=== PATIENT | female | born 1940 | race Caucasian/White ===

== ENCOUNTER → 2016-10-20 | Outpatient (CLI) | payer MEDICARE, BC ==
--- NOTE | 2016-10-21 11:36 | MM ---
Reason for exam: screening (asymptomatic). Last mammogram was performed 1 year ago. History: Patient is postmenopausal. Physical Findings: A clinical breast exam by your physician is recommended on an annual basis and results should be correlated with mammographic findings. MG 3D Screening Mammo W/Cad Bilateral CC and MLO view(s) were taken. Prior study comparison: October 17, 2015, bilateral MG 3d diag mammo w/cad [facility]. May 17, 2015, mammogram, performed at [facility]. There are scattered fibroglandular densities. Benign calcifications. There is chronic nodularity bilaterally. There is no dominant lesion. No significant changes when compared with prior studies. ASSESSMENT: Benign, BI-RAD 2 RECOMMENDATION: Routine screening mammogram of both breasts in 1 year.
== END | disposition home or self-care (01) ==
LOC: RADMAMWWP 09:32
PROVIDERS: ATTEND Internal Medicine
DX: Z12.31 Encounter for screening mammogram for malignant neoplasm of breast (principal)
CPT/HCPCS: 77063; G0202

== ENCOUNTER → 2017-10-22 | Outpatient (CLI) | payer BC, MEDICARE ==
--- NOTE | 2017-10-22 13:33 | MM ---
Reason for exam: screening (asymptomatic). Last mammogram was performed 1 year ago. History: Patient is postmenopausal. Physical Findings: A clinical breast exam by your physician is recommended on an annual basis and results should be correlated with mammographic findings. MG 3D Screening Mammo W/Cad Bilateral CC and MLO view(s) were taken. Prior study comparison: October 20, 2016, bilateral MG 3d screening mammo w/cad. October 17, 2015, bilateral MG 3d diag mammo w/cad [facility]. There is a stable left central lower breast mass. Benign calcifications bilaterally. Left cardial device noted. No significant changes when compared with prior studies. ASSESSMENT: Benign, BI-RAD 2 RECOMMENDATION: Routine screening mammogram of both breasts in 1 year.
== END | disposition home or self-care (01) ==
LOC: RADMAMWWP 08:57
PROVIDERS: ATTEND Family Medicine
DX: Z12.31 Encounter for screening mammogram for malignant neoplasm of breast (principal)
CPT/HCPCS: 77063; 77067

== ENCOUNTER → 2017-12-15 | Outpatient (CLI) | payer MEDICARE ==
--- NOTE | 2017-12-15 09:34 | XR ---
EXAMINATION TYPE: XR ribs LT w pa chest xray DATE OF EXAM: 12/15/2017 COMPARISON: NONE HISTORY: Pain TECHNIQUE: Single view of the chest 4 views of the ribs are submitted. FINDINGS: The lungs are clear. No Evidence for pneumothorax. Hyperinflation compatible COPD. No evid ence for focal contusion. Mediastinal structures are midline. Evaluation of the ribs fails to demon strate evidence for displaced rib fracture or secondary sign of rib fracture. IMPRESSION: 1. COPD. 2. No evidence for a displaced left-sided rib fracture or pneumothorax.
--- NOTE | 2017-12-15 09:35 | XR ---
EXAMINATION TYPE: XR humerus LT DATE OF EXAM: 12/15/2017 CLINICAL HISTORY: pain TECHNIQUE: Frontal and lateral images of the left humerus are obtained. COMPARISON: None. FINDINGS: There is no acute fracture/dislocation evident. The joint spaces appear within normal limi ts. The overlying soft tissue appears unremarkable. IMPRESSION: There is no acute fracture or dislocation. ICD 10 NO FRACTURE, INITIAL EVALUATION
== END | disposition home or self-care (01) ==
LOC: RADXRMAIN 08:59
PROVIDERS: ATTEND Family Medicine
DX: J44.9 Chronic obstructive pulmonary disease, unspecified (principal); M79.602 Pain in left arm

== ENCOUNTER → 2018-04-01 | Outpatient (CLI) | payer MEDICARE ==
[2018-04-01 15:45] LABS: LDL Cholesterol,Calculated 125.6 mg/dL (0.0-131.0); VLDL Calculation 14.4 mg/dL (5.00-40.00)
[2018-04-01 15:53] LABS: T4, Free (Free Thyroxine) 1.3 ng/dL (0.80-1.80)
== END | disposition home or self-care (01) ==
LOC: LABWHC1 06:49
PROVIDERS: ATTEND Internal Medicine Cardiovascular Disease
DX: E78.2 Mixed hyperlipidemia (principal); I42.8 Other cardiomyopathies; I48.0 Paroxysmal atrial fibrillation; I50.22 Chronic systolic (congestive) heart failure; I13.0 Hypertensive heart and chronic kidney disease with heart failure and stage 1 through stage 4 chronic kidney disease, or unspecified chronic kidney disease; N18.9 Chronic kidney disease, unspecified
CPT/HCPCS: 36415; 80061; 82550; 84439; 84443; 84450; 84460

== ENCOUNTER → 2018-07-06 | Outpatient (CLI) | payer MEDICARE ==
--- NOTE | 2018-07-06 15:09 | CT ---
EXAMINATION TYPE: CT brain w con DATE OF EXAM: 07/06/2018 COMPARISON: HISTORY: memory issues CT DLP: 1083.4 mGycm Automated exposure control for dose reduction was used. CONTRAST: CT scan of the head is performed with IV Contrast, patient injected with 50 mL of Isovue 300. FINDINGS: There is no abnormal enhancing mass or midline shift identified. The ventricles and sulci are mildly prominent. Periventricular white matter ischemic demyelination noted. The globes are intact and the visualized sinuses are clear. IMPRESSION: No enhancing lesion identified.
== END | disposition home or self-care (01) ==
LOC: RADCTMAIN 12:59
PROVIDERS: ATTEND Family Medicine
DX: F03.90 Unspecified dementia, unspecified severity, without behavioral disturbance, psychotic disturbance, mood disturbance, and anxiety (principal); I48.2 Chronic atrial fibrillation; Z95.810 Presence of automatic (implantable) cardiac defibrillator
CPT/HCPCS: 82565; 84520; 70460; 36415; Q9967

== ENCOUNTER 2018-09-06 16:42 | Inpatient (IN) | payer MEDICARE ==
[2018-09-06] MEDS ORDERED: SODIUM CHLORIDE 0.9% 500 ML 500 ML IV STA (16:59)
--- NOTE | 2018-09-06 17:07 | ED ---
General Adult HPI - General Chief complaint: Shortness of Breath Stated complaint: BRIGITTE, Weakness Time Seen by Provider: 09/06/18 16:50 Source: patient, EMS, RN notes reviewed Mode of arrival: EMS - History of Present Illness Initial comments: This is a 77-year-old female who presents to the emergency department complaining of being weak times one year. According to the patient she's been weak and somewhat short of breath for almost a year and today her got sick of her being so tired and decided to send her to the emergency department. Patient denies any chest pain or palpitations. Patient states she is short of breath but it has been that way for almost a year. Patient denies any nausea vomiting diarrhea. Patient denies any abdominal pain. Patient denies any lightheadedness dizziness or near syncopal episode. Patient denies any dysuria hematuria urinary frequency. Patient denies any recent injury or fall per patient denies any leg swelling or calf tenderness. - Related Data Home Medications Medication Instructions Recorded Confirmed Acetaminophen Tab [Tylenol] 1,000 mg PO BID PRN 10/07/13 09/06/18 Amiodarone [Cordarone] 200 mg PO DAILY 09/06/18 09/06/18 Carvedilol [Coreg] 3.125 mg PO BID 09/06/18 09/06/18 Losartan [Cozaar] 25 mg PO DAILY 09/06/18 09/06/18 Memantine [Namenda] 10 mg PO BID 09/06/18 09/06/18 Pravastatin Sodium [Pravachol] 20 mg PO HS 09/06/18 09/06/18 Prune-Lax 2 tab PO DAILY 09/06/18 09/06/18 Warfarin Sodium 1 mg PO TUTH 09/06/18 09/06/18 Warfarin [Coumadin] 0.5 mg PO SUMOWEFRSA 09/06/18 09/06/18 Allergies Allergy/AdvReac Type Severity Reaction Status Date / Time amiodarone AdvReac Confusion Verified 09/06/18 17:53 Review of Systems ROS Statement: Those systems with pertinent positive or pertinent negative responses have been documented in the HPI. ROS Other: All systems not noted in ROS Statement are negative. Past Medical History Past Medical History: COPD, Hypertension History of Any Multi-Drug Resistant Organisms: None Reported Past Surgical History: Pacemaker Past Psychological History: No Psychological Hx Reported Smoking Status: Former smoker Past Alcohol Use History: None Reported Past Drug Use History: None Reported General Exam - General Exam Comments Initial Comments: GENERAL: Patient is well-developed and well-nourished. Patient is nontoxic and well- hydrated and is in mild distress. ENT: Neck is soft and supple. No significant lymphadenopathy is noted. Oropharynx is clear. Moist mucous membranes. Neck has full range of motion without eliciting any pain. EYES: The sclera were anicteric and conjunctiva were pink and moist. Extraocular movements were intact and pupils were equal round and reactive to light. Eyelids were unremarkable. PULMONARY: Unlabored respirations. Good breath sounds bilaterally. No audible rales rhonchi or wheezing was noted. CARDIOVASCULAR: There is a regular rate and rhythm without any murmurs gallops or rubs. ABDOMEN: Soft and nontender with normal bowel sounds. SKIN: Skin is clear with no lesions or rashes and otherwise unremarkable. NEUROLOGIC: Patient is alert and oriented x3. Cranial nerves II through XII are grossly i ntact. Motor and sensory are also intact. Normal speech, volume and content. Symmetrical smile. MUSCULOSKELETAL: Normal extremities with adequate strength and full range of motion. No lower extremity swelling or edema. No calf tenderness. LYMPHATICS: No significant lymphadenopathy is noted PSYCHIATRIC: Normal psychiatric evaluation. Course Vital Signs 09/06/18 09/06/18 16:50 20:01 Temperature 98.0 F 98 F Pulse Rate 72 60 Respiratory 16 16 Rate Blood Pressure 194/91 189/90 O2 Sat by Pulse 85 L 94 L Oximetry Medical Decision Making - Medical Decision Making EKG shows a paced rhythm at 70 bpm DE interval was 144 QRS is 126 QT interval 474 QTC is 511. Patient's EKG shows no ST segment elevation or depression or T wave abnormalities are noted. showed up after I initially interviewed the patient he stated that the patient was considerably weak over the last 2 days and has fallen 3 times without injury. Patient did not hit her head or complaining of any neck pain. just was upset because she was having a harder and harder time ambulating. He did not notice any slurred speech or any drooping face or any focal weakness. After the patient had been here an hour and a half the recalled that the patient may have been dragging her left leg on Thursday evening though the symptoms have completely resolved at this point After the patient was here over 3 hours family indicated to me that also have noted that she was altered mentally. I spoke with Dr. Falk he accepted the patient admitted the patient wrote admitting orders. I consult cardiology. I also gave the patient's a little Lasix and Nitropaste because of the mild congestive heart racing on the x-ray. - Lab Data Result diagrams: 09/06/18 15:48 09/06/18 15:48 Lab Results 09/06/18 09/06/18 09/06/18 Range/Units 15:48 15:48 15:48 WBC 11.1 H (3.8-10.6) k/uL RBC 3.58 L (3.80-5.40) m/uL Hgb 10.6 L (11.4-16.0) gm/dL Hct 32.9 L (34.0-46.0) % MCV 92.0 (80.0-100.0) fL MCH 29.5 (25.0-35.0) pg MCHC 32.0 (31.0-37.0) g/dL RDW 14.2 (11.5-15.5) % Plt Count 163 (150-450) k/uL Neutrophils % 76 % Lymphocytes % 12 % Monocytes % 8 % Eosinophils % 1 % Basophils % 0 % Neutrophils # 8.5 H (1.3-7.7) k/uL Lymphocytes # 1.3 (1.0-4.8) k/uL Monocytes # 0.9 (0-1.0) k/uL Eosinophils # 0.1 (0-0.7) k/uL Basophils # 0.0 (0-0.2) k/uL PT 16.3 H (9.0-12.0) sec INR 1.6 H (<1.2) APTT 26.7 (22.0-30.0) sec Sodium 140 (137-145) mmol/L Potassium 4.0 (3.5-5.1) mmol/L Chloride 106 (98-107) mmol/L Carbon Dioxide 26 (22-30) mmol/L Anion Gap 8 mmol/L BUN 40 H (7-17) mg/dL Creatinine 1.21 H (0.52-1.04) mg/dL Est GFR (CKD-EPI)AfAm 51 (>60 ml/min/1.73 sqM) Est GFR (CKD-EPI)NonAf 44 (>60 ml/min/1.73 sqM) Glucose 96 (74-99) mg/dL Plasma Lactic Acid Tutu (0.7-2.0) mmol/L Calcium 8.3 L (8.4-10.2) mg/dL Magnesium 2.1 (1.6-2.3) mg/dL Total Bilirubin 1.2 (0.2-1.3) mg/dL AST 68 H (14-36) U/L ALT 68 H (9-52) U/L Alkaline Phosphatase 51 (38-126) U/L Troponin I (0.000-0.034) ng/mL NT-Pro-B Natriuret Pep pg/mL Total Protein 5.9 L (6.3-8.2) g/dL Albumin 3.1 L (3.5-5.0) g/dL Urine Color Urine Appearance (Clear) Urine pH (5.0-8.0) Ur Specific Ivins (1.001-1.035) Urine Protein (Negative) Urine Glucose (UA) (Negative) Urine Ketones (Negative) Urine Blood (Negative) Urine Nitrite (Negative) Urine Bilirubin (Negative) Urine Urobilinogen (<2.0) mg/dL Ur Leukocyte Esterase (Negative) Urine RBC (0-5) /hpf Urine WBC (0-5) /hpf Urine Bacteria (None) /hpf Hyaline Casts (0-2) /lpf Urine Mucus (None) /hpf 09/06/18 09/06/18 09/06/18 Range/Units 15:48 15:48 16:15 WBC (3.8-10.6) k/uL RBC (3.80-5.40) m/uL Hgb (11.4-16.0) gm/dL Hct (34.0-46.0) % MCV (80.0-100.0) fL MCH (25.0-35.0) pg MCHC (31.0-37.0) g/dL RDW (11.5-15.5) % Plt Count (150-450) k/uL Neutrophils % % Lymphocytes % % Monocytes % % Eosinophils % % Basophils % % Neutrophils # (1.3-7.7) k/uL Lymphocytes # (1.0-4.8) k/uL Monocytes # (0-1.0) k/uL Eosinophils # (0-0.7) k/uL Basophils # (0-0.2) k/uL PT (9.0-12.0) sec INR (<1.2) APTT (22.0-30.0) sec Sodium (137-145) mmol/L Potassium (3.5-5.1) mmol/L Chloride (98-107) mmol/L Carbon Dioxide (22-30) mmol/L Anion Gap mmol/L BUN (7-17) mg/dL Creatinine (0.52-1.04) mg/dL Est GFR (CKD-EPI)AfAm (>60 ml/min/1.73 sqM) Est GFR (CKD-EPI)NonAf (>60 ml/min/1.73 sqM) Glucose (74-99) mg/dL Plasma Lactic Acid Tutu (0.7-2.0) mmol/L Calcium (8.4-10.2) mg/dL Magnesium (1.6-2.3) mg/dL Total Bilirubin (0.2-1.3) mg/dL AST (14-36) U/L ALT (9-52) U/L Alkaline Phosphatase (38-126) U/L Troponin I 0.053 H* (0.000-0.034) ng/mL NT-Pro-B Natriuret Pep 7740 pg/mL Total Protein (6.3-8.2) g/dL Albumin (3.5-5.0) g/dL Urine Color Yellow Urine Appearance Clear (Clear) Urine pH 6.0 (5.0-8.0) Ur Specific Ivins 1.012 (1.001-1.035) Urine Protein 1+ H (Negative) Urine Glucose (UA) Negative (Negative) Urine Ketones Negative (Negative) Urine Blood Small H (Negative) Urine Nitrite Negative (Negative) Urine Bilirubin Negative (Negative) Urine Urobilinogen <2.0 (<2.0) mg/dL Ur Leukocyte Esterase Negative (Negative) Urine RBC <1 (0-5) /hpf Urine WBC 3 (0-5) /hpf Urine Bacteria Rare H (None) /hpf Hyaline Casts 1 (0-2) /lpf Urine Mucus Rare H (None) /hpf 09/06/18 Range/Units 16:48 WBC (3.8-10.6) k/uL RBC (3.80-5.40) m/uL Hgb (11.4-16.0) gm/dL Hct (34.0-46.0) % MCV (80.0-100.0) fL MCH (25.0-35.0) pg MCHC (31.0-37.0) g/dL RDW (11.5-15.5) % Plt Count (150-450) k/uL Neutrophils % % Lymphocytes % % Monocytes % % Eosinophils % % Basophils % % Neutrophils # (1.3-7.7) k/uL Lymphocytes # (1.0-4.8) k/uL Monocytes # (0-1.0) k/uL Eosinophils # (0-0.7) k/uL Basophils # (0-0.2) k/uL PT (9.0-12.0) sec INR (<1.2) APTT (22.0-30.0) sec Sodium (137-145) mmol/L Potassium (3.5-5.1) mmol/L Chloride (98-107) mmol/L Carbon Dioxide (22-30) mmol/L Anion Gap mmol/L BUN (7-17) mg/dL Creatinine (0.52-1.04) mg/dL Est GFR (CKD-EPI)AfAm (>60 ml/min/1.73 sqM) Est GFR (CKD-EPI)NonAf (>60 ml/min/1.73 sqM) Glucose (74-99) mg/dL Plasma Lactic Acid Tutu 1.1 (0.7-2.0) mmol/L Calcium (8.4-10.2) mg/dL Magnesium (1.6-2.3) mg/dL Total Bilirubin (0.2-1.3) mg/dL AST (14-36) U/L ALT (9-52) U/L Alkaline Phosphatase (38-126) U/L Troponin I (0.000-0.034) ng/mL NT-Pro-B Natriuret Pep pg/mL Total Protein (6.3-8.2) g/dL Albumin (3.5-5.0) g/dL Urine Color Urine Appearance (Clear) Urine pH (5.0-8.0) Ur Specific Ivins (1.001-1.035) Urine Protein (Negative) Urine Glucose (UA) (Negative) Urine Ketones (Negative) Urine Blood (Negative) Urine Nitrite (Negative) Urine Bilirubin (Negative) Urine Urobilinogen (<2.0) mg/dL Ur Leukocyte Esterase (Negative) Urine RBC (0-5) /hpf Urine WBC (0-5) /hpf Urine Bacteria (None) /hpf Hyaline Casts (0-2) /lpf Urine Mucus (None) /hpf Critical Care Time Critical Care Time: Yes Total Critical Care Time: 35 Disposition Clinical Impression: Congestive heart failure, Generalized weakness, Altered mental status Disposition: ADMITTED IP TO THIS HOSP Referrals: Fred Gant DO [Primary Care Provider] - 1-2 days Time of Disposition: 20:35
[2018-09-06 17:14] LABS: Basophils % (A) 0 %; Eosinophils # (A) 0.1 k/uL (0-0.7); Eosinophils % (A) 1 %; HCT 32.9 % (34.0-46.0); HGB 10.6 gm/dL (11.4-16.0); Lymphocytes # (A) 1.3 k/uL (1.0-4.8); Lymphocytes % (A) 12 %; MCH 29.5 pg (25.0-35.0); Mean Platelet Volume 7.8; Monocytes # (A) 0.9 k/uL (0-1.0); Monocytes % (A) 8 %; Neutrophils # (A) 8.5 k/uL (1.3-7.7); Neutrophils % (A) 76 %; Platelet Count 163 k/uL (150-450); RBC 3.58 m/uL (3.80-5.40); RDW 14.2 % (11.5-15.5); WBC 11.1 k/uL (3.8-10.6)
[2018-09-06 17:20] LABS: Albumin 3.1 g/dL (3.5-5.0); Calcium 8.3 mg/dL (8.4-10.2); Magnesium 2.1 mg/dL (1.6-2.3); Total Bilirubin 1.2 mg/dL (0.2-1.3); Total Protein 5.9 g/dL (6.3-8.2)
--- NOTE | 2018-09-06 17:52 | XR ---
EXAMINATION TYPE: XR chest 2V DATE OF EXAM: 09/06/2018 COMPARISON: Chest x-ray December 15, 2017 HISTORY: Weakness. TECHNIQUE: Frontal and lateral views of the chest are obtained. FINDINGS: There is chronic parenchymal change with small left greater than right bilateral pleural e ffusions. No suspicious focal airspace opacity or pneumothorax is seen. The cardiac silhouette size i s more prominent and enlarged on current study with atherosclerotic thoracic aorta. There is dual mechelle d pacemaker/ICD with left-sided pacemaker lead redemonstrated.. The osseous structures are deminera lized. Underlying S-shaped scoliosis is present. IMPRESSION: Correlate for CHF exacerbation as there is new cardiomegaly with small left greater than right pleural effusions on background chronic parenchymal change.
[2018-09-06 18:12] LABS: INR 1.6 (<1.2); Partial Thromboplastin Time 26.7 sec (22.0-30.0); Prothrombin Time 16.3 sec (9.0-12.0)
[2018-09-06 18:25] LABS: Appearance,Urine Clear (Clear); Bacteria,Urine Rare /hpf; Bilirubin,Urine Negative (Negative); Blood,Urine Small (Negative); Color,Urine Yellow; Glucose,Urine (UA) Negative (Negative); Hyaline Casts,Urine 1 /lpf (0-2); Ketones,Urine Negative (Negative); Leukocyte Esterase,Urine Negative (Negative); Mucus,Urine Rare /hpf; Nitrite,Urine Negative (Negative); Protein,Urine 1+ (Negative); RBC,Urine <1 /hpf (0-5); Specific Gravity,Urine 1.012 (1.001-1.035); Urobilinogen,Urine <2.0 mg/dL (<2.0)
--- NOTE | 2018-09-06 19:03 | CT ---
EXAMINATION TYPE: CT brain wo con DATE OF EXAM: 09/06/2018 HISTORY: Altered mental status. CT DLP: 1109.4 mGycm. Automated Exposure Control for Dose Reduction was Utilized. TECHNIQUE: CT scan of the head is performed without contrast. COMPARISON: CT brain July 06, 2018. FINDINGS: There is no acute intracranial hemorrhage or midline shift identified. There is diffuse v entricular and sulcal prominence consistent with diffuse age-related cerebral atrophy. There is low- attenuation in the periventricular white matter consistent with chronic small vessel ischemic change. The globes are intact and the visualized sinuses are clear. IMPRESSION: No acute intracranial hemorrhage or midline shift. There is moderate diffuse age-relate d cerebral atrophy and chronic small vessel ischemic change redemonstrated. No significant change fr om recent CT.
[2018-09-06] MEDS ORDERED: FUROSEMIDE 10 MG/ML 2 ML VIAL IV ONE (20:30)
[2018-09-06] MEDS ORDERED: NITROGLYCERIN OINT 1 INCH/GM PACKET TOPICAL STA (20:31)
[2018-09-06] MEDS ORDERED: FUROSEMIDE 10 MG/ML 2 ML VIAL IV SCH (21:00)
[2018-09-06] MEDS: FUROSEMIDE 10 MG/ML 2 ML VIAL IV SCH (22:10)
[2018-09-07] MEDS: NITROGLYCERIN OINT 1 INCH/GM PACKET TOPICAL SCH ×5 (00:49→23:33)
[2018-09-07] MEDS: FUROSEMIDE 10 MG/ML 2 ML VIAL IV SCH ×2 (09:24→21:25)
[2018-09-07] MEDS ORDERED: ACETAMINOPHEN TAB 500 MG TAB PO PRN (09:59)
[2018-09-07] MEDS ORDERED: LOSARTAN 25 MG TAB PO SCH (10:00)
--- NOTE | 2018-09-07 10:09 | P.CRDCN ---
History of Present Illness History of present illness: This is Dr. Leal dictating a consult on this patient The patient was interviewed and examined by me IMPRESSION / ASSESSMENT: Elderly female, presenting with weakness chest wall discomfort borderline troponins shortness of breath Blood pressure elevated Likely history of cardio myopathy status post Bi V pacing PLAN: 2-D echo and Doppler study to assess cardiac structure and function given his symptoms of shortness of breath Consider CT of the chest to look for parenchymal changes consistent with amiodarone toxicity/consider pulmonary evaluation Repeat troponins Manual blood pressure checks with a small cuff HPI According to ER notes patient presents with weakness Increasing weakness over the last 2 days She has fallen 3 times According to family altered mental status was noted She was treated with IV Lasix 20 mg every 12 and injured Nitropaste According to her she is quite short of breath. The patient was complaining of chest discomfort or chest wall is also tender but troponins are borderline abnormal [facility] is on oral amiodarone ROS: No fever chills or rigors, no cough, phlegm or expectoration, no nausea, vomiting or diarrhea, no hematuria, dysuria, no musculoskeletal complaints, no strokes or seizures, no skin lesions. EXAMINATION: Reduced breath sounds bilaterally with crackles at the bases Heart sounds S1 and S2 are soft no murmurs Abdomen is soft Extended is warm no edema No JVD REVIEW OF LABS, ECG & MEDICAL DATA Chest x-ray shows a dual-chamber device Possible small bilateral pleural effusions Twelve-lead ECG shows AV sequential pacing with biventricular pacing with a narrow QRS Computed tomography scan showed cerebral atrophy and chronic small vessel ischemic changes First troponin of 0.053 BUN 40 creatinine 1.2 AST and ALT is 68 each NT PROBnP greater than 7000 White count 11,000 Medication list includes warfarin for paroxysmal atrial fibrillation, Pravachol, Cozaar a regular and 200 mg of amiodarone Past Medical History Past Medical History: COPD, Hypertension History of Any Multi-Drug Resistant Organisms: None Reported Past Surgical History: Pacemaker Additional Past Surgical History / Comment(s): pacer 06/16/2018 Type of Cardiac Device: Biventricular Pacemaker Device Placement Date:: 06/16/2018 Past Psychological History: No Psychological Hx Reported Smoking Status: Former smoker Past Alcohol Use History: None Reported Past Drug Use History: None Reported Medications and Allergies Home Medications Medication Instructions Recorded Confirmed Type Acetaminophen Tab [Tylenol] 1,000 mg PO BID PRN 10/07/13 09/06/18 History Amiodarone [Cordarone] 200 mg PO DAILY 09/06/18 09/06/18 History Carvedilol [Coreg] 3.125 mg PO BID 09/06/18 09/06/18 History Losartan [Cozaar] 25 mg PO DAILY 09/06/18 09/06/18 History Memantine [Namenda] 10 mg PO BID 09/06/18 09/06/18 History Pravastatin Sodium [Pravachol] 20 mg PO HS 09/06/18 09/06/18 History Prune-Lax 2 tab PO DAILY 09/06/18 09/06/18 History Warfarin Sodium 1 mg PO TUTH 09/06/18 09/06/18 History Warfarin [Coumadin] 0.5 mg PO SUMOWEFRSA 09/06/18 09/06/18 History Allergies Allergy/AdvReac Type Severity Reaction Status Date / Time amiodarone AdvReac Confusion Verified 09/06/18 17:53 Physical Exam Vitals: Vital Signs Temp Pulse Pulse Resp BP BP Pulse Ox 09/07/18 04:00 98.5 F 60 20 171/80 98 09/07/18 00:00 98.1 F 60 19 175/88 97 09/06/18 21:05 97.8 F 60 16 187/86 94 L 09/06/18 20:48 98.4 F 80 20 181/84 96 09/06/18 20:01 98 F 60 16 189/90 94 L 09/06/18 16:50 98.0 F 72 16 194/91 85 L Intake and Output 09/06/18 09/07/18 09/07/18 22:59 06:59 14:59 Other: # Voids 4 Weight 44.452 kg 41.7 kg Results 09/06/18 15:48 09/06/18 15:48 Cardiac Enzymes 09/06/18 09/06/18 Range/Units 15:48 15:48 AST 68 H (14-36) U/L Troponin I 0.053 H* (0.000-0.034) ng/mL Coagulation 09/06/18 Range/Units 15:48 PT 16.3 H (9.0-12.0) sec APTT 26.7 (22.0-30.0) sec CBC 09/06/18 Range/Units 15:48 WBC 11.1 H (3.8-10.6) k/uL RBC 3.58 L (3.80-5.40) m/uL Hgb 10.6 L (11.4-16.0) gm/dL Hct 32.9 L (34.0-46.0) % Plt Count 163 (150-450) k/uL Comprehensive Metabolic Panel 09/06/18 Range/Units 15:48 Sodium 140 (137-145) mmol/L Potassium 4.0 (3.5-5.1) mmol/L Chloride 106 (98-107) mmol/L Carbon Dioxide 26 (22-30) mmol/L BUN 40 H (7-17) mg/dL Creatinine 1.21 H (0.52-1.04) mg/dL Glucose 96 (74-99) mg/dL Calcium 8.3 L (8.4-10.2) mg/dL AST 68 H (14-36) U/L ALT 68 H (9-52) U/L Alkaline Phosphatase 51 (38-126) U/L Total Protein 5.9 L (6.3-8.2) g/dL Albumin 3.1 L (3.5-5.0) g/dL Current Medications Generic Name Dose Route Start Last Admin Trade Name Freq PRN Reason Stop Dose Admin Furosemide 20 mg 09/06/18 21:00 09/06/18 22:10 Lasix IV 20 mg Q12HR MISA Administration Nitroglycerin 1 inch 09/07/18 00:00 09/07/18 05:49 Nitro-Bid Oint TOPICAL 1 inch Q6HR MISA Administration Intake and Output 09/06/18 09/07/18 09/07/18 22:59 06:59 14:59 Other: # Voids 4 Weight 44.452 kg 41.7 kg 09/06/18 15:48 09/06/18 15:48
[2018-09-07] MEDS: AMIODARONE 200 MG TAB PO SCH (10:30)
[2018-09-07 11:54] LABS: INR 2.1 (<1.2); Prothrombin Time 20.4 sec (9.0-12.0)
--- NOTE | 2018-09-07 13:18 | ECHOF ---
Referral Reason:sob,cardiomyopathy MEASUREMENTS -------- HEIGHT: 165.1 cm WEIGHT: 41.3 kg BP: 171/80 RVIDd: 3.1 cm (< 3.3) IVSd: 1.1 cm (0.6 - 1.1) LVIDd: 4.2 cm (3.9 - 5.3) LVPWd: 1.1 cm (0.6 - 1.1) IVSs: 1.6 cm LVIDs: 2.6 cm LVPWs: 1.4 cm LAESV Index (A-L): 43.86 ml/m Ao Diam: 3.3 cm (2.0 - 3.7) AV Cusp: 1.6 cm (1.5 - 2.6) LA Diam: 2.2 cm (2.7 - 3.8) MV E Andrew: 1.41 m/s MV DecT: 196 ms MV A Andrew: 0.70 m/s MV E/A Ratio: 2.01 AV maxP.06 mmHg AV meanP.43 mmHg AR PHT: 638 ms RAP: 5.00 mmHg RVSP: 48.53 mmHg FINDINGS -------- Paced rhythm. This was a technically adequate study. The left ventricular size is normal. There is mild concentric left ventricular hypertrophy. Overa ll left ventricular systolic function is low-normal with, an EF between 50 - 55 %. The right ventricle is normal in size and function. LA is severely dilated >40 ml/m2 Electronic pacemaker lead seen in the right ventricular cavity. RA appears enlarged. Aortic valve is trileaflet and is mildly thickened. There is mild aortic regurgitation. There is no evidence of aortic stenosis. The mitral valve leaflets are mildly thickened. Mild mitral annular calcification present. Mild m itral regurgitation is present. [id number] tricuspid regurgitation present. There is mild pulmonary hypertension. The right ventricular systolic pressure, as measured by Doppler, is 48.53mmHg. Trace/mild (physiologic) pulmonic regurgitation. The aortic root size is normal. Normal inferior vena cava with normal inspiratory collapse consistent with estimated right atrial pre ssure of 5 mmHg. There is no pericardial effusion. CONCLUSIONS -------- 1. Paced rhythm. 2. This was a technically adequate study. 3. The left ventricular size is normal. 4. There is mild concentric left ventricular hypertrophy. 5. Overall left ventricular systolic function is low-normal with, an EF between 50 - 55 %. 6. LA is severely dilated >40 ml/m2 7. Electronic pacemaker lead seen in the right ventricular cavity. 8. RA appears enlarged. 9. Aortic valve is trileaflet and is mildly thickened. 10. There is mild aortic regurgitation. 11. There is no evidence of aortic stenosis. 12. The mitral valve leaflets are mildly thickened. 13. Mild mitral annular calcification present. 14. Mild mitral regurgitation is present. 15. [id number]-[id number] tricuspid regurgitation present. 16. There is mild pulmonary hypertension. 17. The right ventricular systolic pressure, as measured by Doppler, is 48.53mmHg. 18. Trace/mild (physiologic) pulmonic regurgitation. 19. The aortic root size is normal. 20. There is no pericardial effusion. HOSPICE BEREAVEMENT COORDINATOR: Guille Garcia RDCS
[2018-09-07 13:46] VITALS: BMI 15.3
[2018-09-07] MEDS ORDERED: HYDROcodone/APAP 5-325MG 1 EACH TAB PO STA (15:52)
[2018-09-07] MEDS: CARVEDILOL 3.125 MG TAB PO SCH (17:00)
[2018-09-07] MEDS ORDERED: WARFARIN 1 MG TAB PO SCH (18:00)
[2018-09-07] MEDS: MEMANTINE 10 MG TAB PO SCH (21:25)
[2018-09-07] MEDS: PRAVASTATIN SODIUM 20 MG TAB PO SCH (21:25)
--- NOTE | 2018-09-07 23:34 | P.HPIM ---
History of Present Illness H&P Date: 09/07/18 Chief Complaint: Chest pain or shortness of breath Patient is a 77-year-old female with a known history of COPD, hypertension, cardiomyopathy with biventricular pacer, long-term anticoagulation with Coumadin was brought to the hospital by her family due to complaints of chest pain or shortness of breath. Aberrantly patient has been very weak and is unable to walk last few days. Patient was also having shortness of breath. She was brought to the hospital by her . Patient was leaning forward in the couch. Otherwise denied any complaints of fever or chills. No cough or sputum production. No recent illnesses. Denied any nausea vomiting or abdominal pain or diarrhea. Denied any dysuria or increased urinary frequency. Patient denied any recent fall. No leg swelling. Patient also has been confused recently as per family. EKG showed AV pacer rhythm Chest x-ray showed correlate for CHF exacerbation as there is new cardiomegaly with small left greater than right pleural effusions on background chronic parenchymal change. Troponin 0.053 and 0[address] head showed no acute intracranial process. Review of Systems Constitutional: Patient denies any fever or chills . No generalized weakness or weight loss. Abdomen: Patient denied nausea vomiting and diarrhea and abdominal pain. Cardiovascular: Patient does have chest pressure and shortness of breath. No leg swelling no palpitations. Respiratory: patient denied any cough is from production. No shortness of breath Neurologic: Patient denied any numbness or tingling headache. Musculoskeletal: Patient denies any complaints of joint swelling or deformity. Complete review of systems could not be obtained from the patient Past Medical History Past Medical History: COPD, Hypertension History of Any Multi-Drug Resistant Organisms: None Reported Past Surgical History: Pacemaker Additional Past Surgical History / Comment(s): pacer 06/16/2018 Type of Cardiac Device: Biventricular Pacemaker Device Placement Date:: 06/16/2018 Past Psychological History: No Psychological Hx Reported Smoking Status: Former smoker Past Alcohol Use History: None Reported Past Drug Use History: None Reported Medications and Allergies Home Medications Medication Instructions Recorded Confirmed Type Acetaminophen Tab [Tylenol] 1,000 mg PO BID PRN 10/07/13 09/06/18 History Amiodarone [Cordarone] 200 mg PO DAILY 09/06/18 09/06/18 History Carvedilol [Coreg] 3.125 mg PO BID 09/06/18 09/06/18 History Losartan [Cozaar] 25 mg PO DAILY 09/06/18 09/06/18 History Memantine [Namenda] 10 mg PO BID 09/06/18 09/06/18 History Pravastatin Sodium [Pravachol] 20 mg PO HS 09/06/18 09/06/18 History Prune-Lax 2 tab PO DAILY 09/06/18 09/06/18 History Warfarin Sodium 1 mg PO TUTH 09/06/18 09/06/18 History Warfarin [Coumadin] 0.5 mg PO SUMOWEFRSA 09/06/18 09/06/18 History Allergies Allergy/AdvReac Type Severity Reaction Status Date / Time amiodarone AdvReac Confusion Verified 09/06/18 17:53 Physical Exam Vitals: Vital Signs Temp Pulse Pulse Resp BP BP Pulse Ox 09/07/18 11:40 97.9 F 61 18 147/66 100 09/07/18 08:00 97.3 F L 63 20 186/79 98 09/07/18 04:00 98.5 F 60 20 171/80 98 09/07/18 00:00 98.1 F 60 19 175/88 97 09/06/18 21:05 97.8 F 60 16 187/86 94 L 09/06/18 20:48 98.4 F 80 20 181/84 96 09/06/18 20:01 98 F 60 16 189/90 94 L 09/06/18 16:50 98.0 F 72 16 194/91 85 L Intake and Output 09/06/18 09/07/18 09/07/18 22:59 06:59 14:59 Intake Total 120 Output Total 700 Balance -580 Intake: Oral 120 Output: Urine 700 Other: # Voids 4 Weight 44.452 kg 41.7 kg 41.7 kg PHYSICAL EXAMINATION: Patient is lying in the bed comfortably, no acute distress, awake alert and oriented.. HEENT: Normocephalic. Neck is supple. Pupils reactive. Nostrils clear. Oral cavity is moist. Ears reveal no drainage. Neck reveals no JVD, carotid bruits, or thyromegaly. Kyphosis. CHEST EXAMINATION: Trachea is central. Symmetrical expansion. Bibasilar diminished air entry. No wheezing. Lung cool clear to auscultation and percussion. CARDIAC: Normal S1, S2 with no gallops. No murmurs ABDOMEN: Soft. Bowel sounds normal. No organomegaly. No abdominal bruits. Extremities: reveal no edema. No calf tenderness. No clubbing or cyanosis Neurologically awake, alert, oriented x2-3 with well-coordinated movements. No focal deficits noted Skin: No rash or skin lesions. Psychiatric: Coperative. Nonsuicidal Musculoskeletal: No joint swelling or deformity. Normal range of motion. Results CBC & Chem 7: 09/06/18 15:48 09/06/18 15:48 Labs: Abnormal Lab Results - Last 24 Hours (Table) 09/06/18 09/06/18 09/06/18 Range/Units 15:48 15:48 15:48 WBC 11.1 H (3.8-10.6) k/uL RBC 3.58 L (3.80-5.40) m/uL Hgb 10.6 L (11.4-16.0) gm/dL Hct 32.9 L (34.0-46.0) % Neutrophils # 8.5 H (1.3-7.7) k/uL PT 16.3 H (9.0-12.0) sec INR 1.6 H (<1.2) BUN 40 H (7-17) mg/dL Creatinine 1.21 H (0.52-1.04) mg/dL Calcium 8.3 L (8.4-10.2) mg/dL AST 68 H (14-36) U/L ALT 68 H (9-52) U/L Troponin I (0.000-0.034) ng/mL Total Protein 5.9 L (6.3-8.2) g/dL Albumin 3.1 L (3.5-5.0) g/dL Urine Protein (Negative) Urine Blood (Negative) Urine Bacteria (None) /hpf Urine Mucus (None) /hpf 09/06/18 09/06/18 09/07/18 Range/Units 15:48 16:15 10:58 WBC (3.8-10.6) k/uL RBC (3.80-5.40) m/uL Hgb (11.4-16.0) gm/dL Hct (34.0-46.0) % Neutrophils # (1.3-7.7) k/uL PT 20.4 H (9.0-12.0) sec INR 2.1 H (<1.2) BUN (7-17) mg/dL Creatinine (0.52-1.04) mg/dL Calcium (8.4-10.2) mg/dL AST (14-36) U/L ALT (9-52) U/L Troponin I 0.053 H* (0.000-0.034) ng/mL Total Protein (6.3-8.2) g/dL Albumin (3.5-5.0) g/dL Urine Protein 1+ H (Negative) Urine Blood Small H (Negative) Urine Bacteria Rare H (None) /hpf Urine Mucus Rare H (None) /hpf Thrombosis Risk Factor Assmnt - DVT/VTE Prophylaxis DVT/VTE Prophylaxis: Pharmacologic Prophylaxis ordered - Choose All That Apply Any of the Below Risk Factors Present?: Yes Each Factor Represents 1 point: Abnormal pulmonary function (COPD), Heart failure (<1month) Each Risk Factor Represents 3 Points: Age 75 years or older, Elevated anticardiolipin antibodies Thrombosis Risk Factor Assessment Total Risk Factor Score: 8 Thrombosis Risk Factor Assessment Level: High Risk Assessment and Plan Assessment: Chest discomfort with shortness of breath. Rule out ACS. Mild troponin elevation. Acute CHF with possible systolic dysfunction. Ejection fraction not known Bilateral leg weakness and fall 2 during last 3 days Confusion and altered mental status. CT head negative. History of biventricular AICD placement Coumadin monitoring Dementia Kyphosis Plan: Patient will be continued on gentle diuresis with Lasix 20 mg twice daily. Continue with the warfarin. Continue with amiodarone, Coreg and losartan and statins. Cardiology is following. Follow-up 2-D echocardiogram report. Will get x-ray of the thoracic spine due to tenderness. Patient doesn't remember when she fell. Continue to follow closely. Discussed with the family, her and daughter at bedside in detail. Prognosis is guarded. Further recommendations based on the clinical course. Time with Patient: Greater than 30
[2018-09-08] MEDS: NITROGLYCERIN OINT 1 INCH/GM PACKET TOPICAL SCH ×4 (06:09→23:14)
[2018-09-08] MEDS: CARVEDILOL 3.125 MG TAB PO SCH ×3 (06:09→18:04)
[2018-09-08 07:36] LABS: INR 2.3 (<1.2)
[2018-09-08 07:38] LABS: Calcium 8.8 mg/dL (8.4-10.2); Potassium 3.8 mmol/L (3.5-5.1)
[2018-09-08 07:54] LABS: HCT 35.3 % (34.0-46.0); HGB 11.3 gm/dL (11.4-16.0); MCH 29.6 pg (25.0-35.0); MCV 92.3 fL (80.0-100.0); Mean Platelet Volume 7.5; Platelet Count 232 k/uL (150-450); RBC 3.82 m/uL (3.80-5.40); WBC 10.5 k/uL (3.8-10.6)
[2018-09-08] MEDS: HYDROcodone/APAP 5-325MG 1 EACH TAB PO PRN ×2 (07:58→14:49)
[2018-09-08] MEDS: AMIODARONE 200 MG TAB PO SCH (09:04)
[2018-09-08] MEDS: FUROSEMIDE 10 MG/ML 2 ML VIAL IV SCH ×2 (09:04→20:21)
[2018-09-08] MEDS: MEMANTINE 10 MG TAB PO SCH ×2 (09:04→20:21)
[2018-09-08] MEDS: LOSARTAN 50 MG TAB PO SCH (09:04)
--- NOTE | 2018-09-08 09:30 | XR ---
EXAMINATION TYPE: XR thoracic spine 2V DATE OF EXAM: 09/08/2018 COMPARISON: None HISTORY: Back pain TECHNIQUE: Three-view thoracic spine FINDINGS: There is an increased thoracic kyphosis. Compression deformity is in the upper thoracic spi ne. This appears to be at the T3 level. Posterior wall displacement is not identified. Some minimal superior endplate changes may be within the mid to lower thoracic spine. No posterior wa ll displacement is evident. Diffuse degenerative disc changes are present. IMPRESSION: 1. Severe compression deformity at T3 of indeterminate age.
[2018-09-08 10:19] LABS: Lymphocytes # (M) 1.47 k/uL (1.0-4.8); Monocytes # (M) 1.68 k/uL (0-1.0); Neutrophils # (M) 7.35 k/uL (1.3-7.7); Neutrophils % (M) 70 %; Nucleated Red Blood Cells 0 /100 WBC (0-0); Total Cells Counted 100
--- NOTE | 2018-09-08 10:26 | P.PN ---
Subjective Progress Note Date: 09/08/18 Principal diagnosis: CHF This is a 77-year-old female with history of COPD, hypertension, prior by V pacemaker, who presented to the hospital with symptoms of weakness, falls at home, and mental status changes. Currently receiving IV Lasix for congestive cardiac failure. Her BNP level on admission was 7740. Echocardiogram with Doppler study was performed which revealed a normal left ventricular systolic function. Blood pressure 134/60 with a heart rate in the 60s, 94% on 3 L of oxygen. White blood cell count 10.5, hemoglobin 11.3, platelet count 232. INR 2.3. Sodium 139, potassium 3.8, BUN 29 and creatinine 1.0. She diuresis through the night, weight is down today. At the time of my examination patient is sitting up in the chair. She is complaining of pain in her flank area and chest when she takes a deep breath or coughs. Breathing is overall stable. Objective - Vital Signs Vital signs: Vital Signs Temp 98.2 F 09/08/18 04:00 Pulse 63 09/08/18 04:00 Resp 20 09/08/18 04:00 BP 134/67 09/08/18 04:00 Pulse Ox 94 L 09/08/18 04:00 Intake & Output 09/07/18 09/08/18 09/08/18 18:59 06:59 18:59 Intake Total 240 120 200 Output Total 700 Balance -460 120 200 Weight 41.7 kg 41 kg Intake: Oral 240 120 200 Output: Urine 700 Other: # Voids 1 4 # Bowel Movements 1 - Exam PHYSICAL EXAMINATION: GENERAL: 77-year-old female in no acute distress at the time of my exa mination HEENT: Head is atraumatic, normocephalic. Pupils equal, round. Sclera anicteric. Conjunctiva are clear. Mucous membranes of the mouth are moist. Neck is supple. There is no elevated jugular venous pressure. No carotid bruit is heard. HEART EXAMINATION: Heart S1 and S2 systolic murmur is heard CHEST EXAMINATION: Lungs reveal diminished air entry with fine crackles to the bases ABDOMEN: Soft, nontender. Bowel sounds are heard. No organomegaly noted. EXTREMITIES: 2+ peripheral pulses with no evidence of peripheral edema and no calf tenderness noted. NEUROLOGIC patient is awake, alert and oriented 1 . . - Labs CBC & Chem 7: 09/08/18 06:20 09/08/18 06:20 Labs: Abnormal Lab Results - Last 24 Hours (Table) 09/07/18 09/08/18 09/08/18 Range/Units 10:58 06:20 06:20 Hgb 11.3 L (11.4-16.0) gm/dL PT 20.4 H 22.0 H (9.0-12.0) sec INR 2.1 H 2.3 H (<1.2) Carbon Dioxide (22-30) mmol/L BUN (7-17) mg/dL Glucose (74-99) mg/dL 09/08/18 Range/Units 06:20 Hgb (11.4-16.0) gm/dL PT (9.0-12.0) sec INR (<1.2) Carbon Dioxide 34 H (22-30) mmol/L BUN 29 H (7-17) mg/dL Glucose 102 H (74-99) mg/dL Assessment and Plan Plan: Assessment and plan #1 symptoms of weakness and mental status changes, frequent falls, CT of the brain is negative. #2 diastolic congestive heart failure acute on chronic #3 history of BI V device #4 hypertension #5 kyphosis #6 dementia #7 mild abnormality in troponin, not consistent with acute coronary syndrome, echocardiogram with Doppler study revealed a normal left ventricular systolic function. #8 paroxysmal atrial fibrillation, on Coumadin for anticoagulation Plan Echocardiogram with Doppler study was performed which revealed a normal left v entricular systolic function with mild to moderate tricuspid regurgitation. We will continue the patient on IV Lasix for 24 hours, changed over to oral diuretics in the morning. Check lytes BUN and creatinine in the morning. DNP note has been reviewed, I agree with a documented findings and plan of care. Patient was seen and examined.
[2018-09-08] MEDS: LIDOCAINE 5% PATCH TOPICAL SCH (14:49)
[2018-09-08] MEDS: WARFARIN 0.5 MG TAB PO SCH ×2 (17:50→18:04)
[2018-09-08] MEDS: PRAVASTATIN SODIUM 20 MG TAB PO SCH (20:21)
[2018-09-08 23:29] VITALS: PULSE 60
--- NOTE | 2018-09-08 23:59 | P.PN ---
Subjective Progress Note Date: 09/08/18 Principal diagnosis: Acute CHF exacerbation Status post fall 2 Patient is a 77-year-old female with a known history of COPD, hypertension, cardiomyopathy with biventricular pacer, long-term anticoagulation with Coumadin was brought to the hospital by her family due to complaints of chest pain or shortness of breath. Aberrantly patient has been very weak and is unable to walk last few days. Patient was also having shortness of breath. She was brought to the hospital by her . Patient was leaning forward in the couch. Otherwise denied any complaints of fever or chills. No cough or sputum production. No recent illnesses. Denied any nausea vomiting or abdominal pain or diarrhea. Denied any dysuria or increased urinary frequency. Patient denied any recent fall. No leg swelling. Patient also has been confused recently as per family. EKG showed AV pacer rhythm Chest x-ray showed correlate for CHF exacerbation as there is new cardiomegaly with small left greater than right pleural effusions on background chronic parenchymal change. Troponin 0.053 and 0[address] head showed no acute intracranial process. on 09/08/2018 Patient is currently able to stay in the chair comfortably. Breathing status is improving. Awake alert oriented 3. Patient still having bilateral lower extremity weakness and is undergoing physical therapy. Patient is being continued on IV Lasix. 2-D echocardiogram showed normal left ventricular systolic function with ejection fraction 55-50%. X-ray of the thoracic spine showed severe compression deformity at T3 of indeterminate age. Patient is saturating well on nasal cannula oxygen. No compressive chest pain. Patient does have back pain/soreness and lidocaine patch was applied. No nausea vomiting or abdominal pain. Tolerating oral diet. discussed with her at bedside in detail. Current medications reviewed. Objective - Vital Signs Vital signs: Vital Signs Temp 98.1 F 09/08/18 20:00 Pulse 61 09/08/18 20:00 Resp 18 09/08/18 20:02 BP 186/68 09/08/18 20:00 Pulse Ox 95 09/08/18 20:02 Intake & Output 09/08/18 09/08/18 09/09/18 06:59 18:59 06:59 Intake Total 120 680 Output Total 900 Balance 120 -220 Weight 41 kg 41 kg Intake: Oral 120 680 Output: Urine 900 Other: Voiding Method Toilet # Voids 4 3 3 # Bowel Movements 1 - Exam PHYSICAL EXAMINATION: Patient is lying in the bed comfortably, no acute distress, awake alert and oriented.. HEENT: Normocephalic. Neck is supple. Pupils reactive. Nostrils clear. Oral cavity is moist. Ears reveal no drainage. Neck reveals no JVD, carotid bruits, or thyromegaly. Kyphosis. CHEST EXAMINATION: Trachea is central. Symmetrical expansion. Bibasilar diminished air entry. No wheezing. Lung cool clear to auscultation and percussion. CARDIAC: Normal S1, S2 with no gallops. No murmurs ABDOMEN: Soft. Bowel sounds normal. No organomegaly. No abdominal bruits. Extremities: reveal no edema. No calf tenderness. No clubbing or cyanosis Neurologically awake, alert, oriented x3 with well-coordinated movements. No focal deficits noted Skin: No rash or skin lesions. Psychiatric: Coperative. Nonsuicidal Musculoskeletal: No joint swelling or deformity. Normal range of motion. - Labs CBC & Chem 7: 09/08/18 06:20 09/08/18 06:20 Labs: Abnormal Lab Results - Last 24 Hours (Table) 09/08/18 09/08/18 09/08/18 Range/Units 06:20 06:20 06:20 Hgb 11.3 L (11.4-16.0) gm/dL Monocytes # (Manual) 1.68 H (0-1.0) k/uL PT 22.0 H (9.0-12.0) sec INR 2.3 H (<1.2) Carbon Dioxide 34 H (22-30) mmol/L BUN 29 H (7-17) mg/dL Glucose 102 H (74-99) mg/dL Assessment and Plan Assessment: Chest discomfort with shortness of breath. Ruled out ACS. Mild troponin elevation. Acute CHF with diastolic dysfunction. Normal efferent lab ejection fraction on 2-D echo cardiogram. Bilateral leg weakness and fall 2 during last 3 days Confusion and altered mental status. Possible metabolic encephalopathy reso lved. CT head negative. Chronic atrial fibrillation on anticoagulation. History of biventricular AICD placement Coumadin monitoring Dementia Kyphosis Plan: Patient will be continued on gentle diuresis with Lasix 20 mg twice daily. Continue with the warfarin. Continue with amiodarone, Coreg and losartan and statins. Cardiology is following. 2-D echocardiogram was done. Continue with lidocaine patch. Pimento will be discontinued. Continue to follow closely. PT OT is following. Discussed with the family, her and daughter at bedside in detail. Prognosis is guarded. Further recommendations based on the clinical course. Time with Patient: Greater than 30
[2018-09-09] MEDS: NITROGLYCERIN OINT 1 INCH/GM PACKET TOPICAL SCH ×2 (06:19→13:24)
[2018-09-09 06:42] LABS: INR 1.8 (<1.2); Prothrombin Time 18.1 sec (9.0-12.0)
[2018-09-09] MEDS: CARVEDILOL 3.125 MG TAB PO SCH (06:57)
[2018-09-09] MEDS: HYDROcodone/APAP 5-325MG 1 EACH TAB PO PRN (06:59)
[2018-09-09] MEDS: FUROSEMIDE 10 MG/ML 2 ML VIAL IV SCH (09:42)
[2018-09-09] MEDS: MEMANTINE 10 MG TAB PO SCH (09:42)
[2018-09-09] MEDS: AMIODARONE 200 MG TAB PO SCH (09:42)
[2018-09-09] MEDS: LOSARTAN 50 MG TAB PO SCH (09:42)
[2018-09-09] MEDS: LIDOCAINE 5% PATCH TOPICAL SCH (09:47)
[2018-09-09 12:16] VITALS: BP 107/58; RESP 17; TEMP 97.9
--- NOTE | 2018-09-09 14:49 | P.PN ---
Subjective Progress Note Date: 09/09/18 This is a 77-year-old female with history of COPD, hypertension, prior by V pacemaker, who presented to the hospital with symptoms of weakness, falls at home, and mental status changes. Currently receiving IV Lasix for congestive cardiac failure. Her BNP level on admission was 7740. Echocardiogram with Doppler study was performed which revealed a normal left ventricular systolic function. Blood pressure 134/60 with a heart rate in the 60s, 94% on 3 L of oxygen. White blood cell count 10.5, hemoglobin 11.3, platelet count 232. INR 2.3. Sodium 139, potassium 3.8, BUN 29 and creatinine 1.0. She diuresis through the night, weight is down today. At the time of my examination patient is sitting up in the chair. She is complaining of pain in her flank area and chest when she takes a deep breath or coughs. Breathing is overall stable. 09/09/2018 Patient seen and examined this morning, weight is down 1 kg today. Echo showed normal left ventricular systolic function. Blood pressure 108/60 with a heart rate in the 60s, 94% on room air. INR today 1.8. Objective - Vital Signs Vital signs: Vital Signs Temp 97.9 F 09/09/18 12:00 Pulse 60 09/09/18 12:00 Resp 17 09/09/18 12:00 BP 107/58 09/09/18 12:00 Pulse Ox 94 L 09/09/18 12:00 Intake & Output 09/08/18 09/09/18 09/09/18 18:59 06:59 18:59 Intake Total 680 420 Output Total 900 Balance -220 420 Weight 40.4 kg Intake: Oral 680 420 Output: Urine 900 Other: Voiding Method Toilet # Voids 3 1 # Bowel Movements 1 - Exam PHYSICAL EXAMINATION: GENERAL: 77-year-old female in no acute distress at the time of my examination HEENT: Head is atraumatic, normocephalic. Pupils equal, round. Sclera anicteric. Conjunctiva are clear. Mucous membranes of the mouth are moist. Neck is supple. There is no elevated jugular venous pressure. No carotid bruit is heard. HEART EXAMINATION: Heart S1 and S2 systolic murmur is heard CHEST EXAMINATION: Lungs reveal diminished air entry with fine crackles to the bases ABDOMEN: Soft, nontender. Bowel sounds are heard. No organomegaly noted. EXTREMITIES: 2+ peripheral pulses with no evidence of peripheral edema and no calf tenderness noted. NEUROLOGIC patient is awake, alert and oriented 1 . . - Labs CBC & Chem 7: 09/08/18 06:20 09/08/18 06:20 Labs: Abnormal Lab Results - Last 24 Hours (Table) 09/09/18 Range/Units 06:12 PT 18.1 H (9.0-12.0) sec INR 1.8 H (<1.2) Assessment and Plan Plan: Assessment and plan #1 symptoms of weakness and mental status changes, frequent falls, CT of the brain is negative. #2 diastolic congestive heart failure acute on chronic #3 history of BI V device #4 hypertension #5 kyphosis #6 dementia #7 mild abnormality in troponin, not consistent with acute coronary syndrome, echocardiogram with Doppler study revealed a normal left ventricular systolic function. #8 paroxysmal atrial fibrillation, on Coumadin for anticoagulation Plan Echocardiogram with Doppler study was performed which revealed a normal left ventricular systolic function with mild to moderate tricuspid regurgitation. We will discontinue the IV Lasix today and start the patient on oral diuretics. If the patient 2 mg of Coumadin today instead of the scheduled 1, maintain an INR in the range of 2-2.5. DNP note has been reviewed, I agree with a documented findings and plan of care. Patient was seen and examined.
--- NOTE | 2018-09-09 15:34 | P.DS ---
Providers Date of admission: 09/08/18 14:35 Expected date of discharge: 09/09/18 Attending physician: Clair Falk Consults: 09/06/18 20:36 Consult Physician Routine Consulting Provider: [facility] Consult Reason/Comments: Congestive heart failure Do you want consulting provider notified?: Yes Primary care physician: [facility] Course: Discharge diagnosis Chest discomfort with shortness of breath. Ruled out ACS. Mild troponin elevation. Unlikely ACS. Acute CHF with diastolic dysfunction. Normal efferent ejection fraction on 2-D echo cardiogram. Bilateral leg weakness and fall 2 during last 3 days possible deconditioning. Confusion and altered mental status. Possible metabolic encephalopathy resolved. CT head negative. Chronic atrial fibrillation on anticoagulation. History of biventricular AICD placement Coumadin monitoring Dementia Kyphosis Hospital course Patient is a 77-year-old female with a known history of COPD, hypertension, cardiomyopathy with biventricular pacer, long-term anticoagulation with Coumadin was brought to the hospital by her family due to complaints of chest pain or shortness of breath. Aberrantly patient has been very weak and is unable to walk last few days. Patient was also having shortness of breath. She was brought to the hospital by her . Patient was leaning forward in the couch. Otherwise denied any complaints of fever or chills. No cough or sputum production. No recent illnesses. Denied any nausea vomiting or abdominal pain or diarrhea. Denied any dysuria or increased urinary frequency. Patient denied any recent fall. No leg swelling. Patient also has been confused recently as per family. EKG showed AV pacer rhythm Chest x-ray showed correlate for CHF exacerbation as there is new cardiomegaly with small left greater than right pleural effusions on background chronic parenchymal change. Troponin 0.053 and [address] head showed no acute intracranial process. on 09/08/2018 Patient is currently able to stay in the chair comfortably. Breathing status is improving. Awake alert oriented 3. Patient still having bilateral lower extremity weakness and is undergoing physical therapy. Patient is being continued on IV Lasix. 2-D echocardiogram showed normal left ventricular systolic function with ejection fraction 55-50%. X-ray of the thoracic spine showed severe compression deformity at T3 of indeterminate age. Patient is saturating well on nasal cannula oxygen. No compressive chest pain. Patient does have back pain/soreness and lidocaine patch was applied. No nausea vomiting or abdominal pain. Tolerating oral diet. discussed with her at bedside in detail. 09/09/2018 Patient is more awake and oriented today. Back pain is better. With lidocaine patch on. Breathing status is improved as well. Lasix will be changed to by mouth 20 mg twice daily. Continue with current management and warfarin dosing. Patient is getting physical therapy and is beneficial going to be rehab. Patient is otherwise stable to be discharged. Plan: Patient was continued on gentle diuresis with Lasix 20 mg twice daily. Changed to 20 mg twice daily. Continued with the warfarin. Target INR is 2-3. Continue with amiodarone, Coreg and losartan and statins. Cardiology is following. 2-D echocardiogram showed normal ejection fraction.. Continue with lidocaine patch. [place] will be discontinued. PT OT recommends rehab transfer.. Discussed with the family, her and daughter at bedside in detail. Patient is stable to be discharged to rehab. PHYSICAL EXAMINATION: Patient is lying in the bed comfortably, no acute distress, awake alert and oriented.. HEENT: Normocephalic. Neck is supple. Pupils reactive. Nostrils clear. Oral cavity is moist. Ears reveal no drainage. Neck reveals no JVD, carotid bruits, or thyromegaly. Kyphosis. CHEST EXAMINATION: Trachea is central. Symmetrical expansion. Bibasilar diminished air entry. No wheezing. Lung cool clear to auscultation and percussion. CARDIAC: Normal S1, S2 with no gallops. No murmurs ABDOMEN: Soft. Bowel sounds normal. No organomegaly. No abdominal bruits. Extremities: reveal no edema. No calf tenderness. No clubbing or cyanosis Neurologically awake, alert, oriented x3 with well-coordinated movements. No focal deficits noted Skin: No rash or skin lesions. Psychiatric: Coperative. Nonsuicidal Musculoskeletal: No joint swelling or deformity. Normal range of motion. Vital Signs 09/09/18 09/09/18 08:00 12:00 Temperature 97.8 F 97.9 F Pulse Rate [ 60 60 Pulse Oximetery ] Respiratory 14 17 Rate Blood Pressure 113/59 107/58 [Left Arm Supine] O2 Sat by Pulse 94 L Oximetry Total time taken greater than 35 minutes including 18 minutes for counseling and coordination of care. Patient Condition at Discharge: Good Plan - Discharge Summary Discharge Rx Participant: No New Discharge Prescriptions: New Furosemide [Lasix] 20 mg PO BID@0900,1600 #60 tab Lidocaine 5% Patch [Lidoderm 5% Patch] 1 patch TOPICAL DAILY #7 patch Continue Acetaminophen Tab [Tylenol] 1,000 mg PO BID PRN PRN Reason: Pain Warfarin [Coumadin] 0.5 mg PO SUMOWEFRSA Warfarin Sodium 1 mg PO TUTH Pravastatin Sodium [Pravachol] 20 mg PO HS Memantine [Namenda] 10 mg PO BID Losartan [Cozaar] 25 mg PO DAILY Carvedilol [Coreg] 3.125 mg PO BID Amiodarone [Cordarone] 200 mg PO DAILY Prune-Lax 2 tab PO DAILY Discharge Medication List Acetaminophen Tab [Tylenol] 1,000 mg PO BID PRN 10/07/13 [History] Amiodarone [Cordarone] 200 mg PO DAILY 09/06/18 [History] Carvedilol [Coreg] 3.125 mg PO BID 09/06/18 [History] Losartan [Cozaar] 25 mg PO DAILY 09/06/18 [History] Memantine [Namenda] 10 mg PO BID 09/06/18 [History] Pravastatin Sodium [Pravachol] 20 mg PO HS 09/06/18 [History] Prune-Lax 2 tab PO DAILY 09/06/18 [History] Warfarin Sodium 1 mg PO TUTH 09/06/18 [History] Warfarin [Coumadin] 0.5 mg PO SUMOWEFRSA 09/06/18 [History] Furosemide [Lasix] 20 mg PO BID@0900,1600 #60 tab 09/09/18 [Rx] Lidocaine 5% Patch [Lidoderm 5% Patch] 1 patch TOPICAL DAILY #7 patch 09/09/18 [Rx] Follow up Appointment(s)/Referral(s): Raul Leal MD [STAFF PHYSICIAN] - 10/01/18 3:15 pm Fred Gant DO [Primary Care Provider] - 09/15/18 10:20 am (Thursday with Dora GRANT) Patient Instructions/Handouts: Heart Failure (DC), Heart Healthy Diet (DC), Vertebral Compression Fracture (DC) Activity/Diet/Wound Care/Special Instructions: Discharge to [facility]. Discharge Disposition: TRANSFER TO SNF/F
[2018-09-09] MEDS ORDERED: FUROSEMIDE 20 MG TAB PO SCH (16:00)
[2018-09-09] MEDS ORDERED: WARFARIN 2 MG TAB PO ONE (18:00)
== END 2018-09-09 16:41 | DRG 291 ==
LOC: EC 16:42 → INTOOBSV 20:39 → 3SCARD 20:39 → OBSVTOIN 09-08 14:35
PROVIDERS: ADMIT Internal Medicine; ATTEND Internal Medicine
DX: I11.0 Hypertensive heart disease with heart failure (principal); G93.41 Metabolic encephalopathy; I50.33 Acute on chronic diastolic (congestive) heart failure; J44.9 Chronic obstructive pulmonary disease, unspecified; I07.1 Rheumatic tricuspid insufficiency; F03.90 Unspecified dementia, unspecified severity, without behavioral disturbance, psychotic disturbance, mood disturbance, and anxiety; I42.9 Cardiomyopathy, unspecified; I48.0 Paroxysmal atrial fibrillation; M40.209 Unspecified kyphosis, site unspecified; M54.9 Dorsalgia, unspecified; R29.6 Repeated falls; R77.9 Abnormality of plasma protein, unspecified; Z79.01 Long term (current) use of anticoagulants; Z79.899 Other long term (current) drug therapy; Z87.891 Personal history of nicotine dependence; Z95.0 Presence of cardiac pacemaker; Z88.8 Allergy status to other drugs, medicaments and biological substances
CPT/HCPCS: 36415; 70450; 71046; 72070; 80048; 80053; 81001; 83605; 83735; 83880; 84484; 85025; 85610; 85730; 93005; 93306; 96374; 99291

== ENCOUNTER 2018-10-08 17:01 | Observation (INO) | payer MEDICARE ==
--- NOTE | 2018-10-08 17:46 | ED ---
Recheck HPI - General Chief Complaint: Recheck/Abnormal Lab/Rx Stated Complaint: PT 8.0 Time Seen by Provider: 10/08/18 17:20 Source: patient Mode of arrival: ambulatory Limitations: no limitations - History of Present Illness Initial Comments: 77-year-old female patient presents to the emergency department today for evaluation of elevated INR. Patient does take Coumadin for history of atrial fibrillation and has had elevated INRs this week. Did have a 7.6 INR at the beginning of the week, she did skip 3 doses of Coumadin on recheck the INR was then 8. The voice engineer to try to order outpatient vitamin K however dosages were unavailable local pharmacies. Patient was sent to the emergency department for further evaluation and dosing. Patient denies any current active bleeding. Denies any headache, blurred vision, or double vision. Denies any hematochezia or melena. Patient denies any recent rash, fever, chills, shortness breath, chest pain, abdominal pain, nausea, vomiting, diarrhea, constipation, back pain, numbness, tingling, dizziness, weakness, hematuria, dysuria, urinary urgency, urinary frequency, headache, visual changes, or any other complaints. - Related Data Home Medications Medication Instructions Recorded Confirmed Acetaminophen Tab [Tylenol] 1,000 mg PO Q6H PRN 10/07/13 10/08/18 Amiodarone [Cordarone] 200 mg PO DAILY 09/06/18 10/08/18 Carvedilol [Coreg] 3.125 mg PO BID 09/06/18 10/08/18 Losartan [Cozaar] 25 mg PO DAILY 09/06/18 10/08/18 Memantine [Namenda] 10 mg PO BID 09/06/18 10/08/18 Pravastatin Sodium [Pravachol] 20 mg PO HS 09/06/18 10/08/18 Prune-Lax 2 tab PO DAILY 09/06/18 10/08/18 Furosemide [Lasix] 20 mg PO DAILY 10/08/18 10/08/18 Potassium Chloride ER [K-Dur 10] 10 meq PO DAILY 10/08/18 10/08/18 Warfarin [Coumadin] 2 mg PO HS 10/08/18 10/08/18 traMADol HCL [Ultram] 50 mg PO Q8H PRN 05/03/19 05/03/19 Previous Rx's Medication Instructions Recorded Lidocaine 5% Patch [Lidoderm 5% 1 patch TOPICAL DAILY #7 patch 09/09/18 Patch] Allergies Allergy/AdvReac Type Severity Reaction Status Date / Time amiodarone AdvReac Confusion Verified 10/08/18 17:27 Review of Systems ROS Statement: Those systems with pertinent positive or pertinent negative responses have been documented in the HPI. ROS Other: All systems not noted in ROS Statement are negative. Past Medical History Past Medical History: Atrial Fibrillation, COPD, Hypertension History of Any Multi-Drug Resistant Organisms: None Reported Past Surgical History: Pacemaker Additional Past Surgical History / Comment(s): pacer 06/16/2018 Type of Cardiac Device: Biventricular Pacemaker Device Placement Date:: 06/16/2018 Past Psychological History: No Psychological Hx Reported Smoking Status: Former smoker Past Alcohol Use History: None Reported Past Drug Use History: None Reported General Exam Limitations: no limitations General appearance: alert, in no apparent distress, other (Physical well- developed, well-nourished elderly female patient in no acute distress. Vital signs upon presentation are temperature 97.6F, pulse 60, respirations 18, blood pressure 99/58, pulse ox 98% on room air.) Eye exam: Present: normal appearance, PERRL, EOMI. Absent: scleral icterus, conjunctival injection, periorbital swelling ENT exam: Present: normal exam, normal oropharynx, mucous membranes moist Respiratory exam: Present: normal lung sounds bilaterally. Absent: respiratory distress, wheezes, rales, rhonchi, stridor Cardiovascular Exam: Present: regular rate, normal rhythm, normal heart sounds. Absent: systolic murmur, diastolic murmur, rubs, gallop, clicks GI/Abdominal exam: Present: soft, normal bowel sounds. Absent: distended, tenderness, guarding, rebound, rigid Neurological exam: Present: alert, oriented X3, CN II-XII intact Psychiatric exam: Present: normal affect, normal mood Skin exam: Present: warm, dry, intact, normal color. Absent: rash Course Vital Signs 10/08/18 17:10 Temperature 97.6 F Pulse Rate 60 Respiratory 18 Rate Blood Pressure 99/58 O2 Sat by Pulse 98 Oximetry Medical Decision Making - Medical Decision Making 77-year-old female patient is brought to the emergency department today for evaluation of elevated INR. Patient has been having elevated INRs throughout the week, last dose of Coumadin was on Thursday. INR in this department was 8.6. This is elevated from 7.6 on Thursday. Patient will be given oral dose of vitamin K, we'll admit for observation to repeat labs in the morning. Patient denies any current bleeding. Vital signs stable. Did discuss results and plan with the patient, she is agreeable. - Lab Data Result diagrams: 10/08/18 17:51 Lab Results 10/08/18 10/08/18 Range/Units 17:51 17:51 WBC 13.1 H (3.8-10.6) k/uL RBC 4.33 (3.80-5.40) m/uL Hgb 12.7 (11.4-16.0) gm/dL Hct 39.1 (34.0-46.0) % MCV 90.3 (80.0-100.0) fL MCH 29.4 (25.0-35.0) pg MCHC 32.6 (31.0-37.0) g/dL RDW 15.0 (11.5-15.5) % Plt Count 212 (150-450) k/uL Neutrophils % 72 % Lymphocytes % 18 % Monocytes % 6 % Eosinophils % 1 % Basophils % 0 % Neutrophils # 9.4 H (1.3-7.7) k/uL Lymphocytes # 2.3 (1.0-4.8) k/uL Monocytes # 0.8 (0-1.0) k/uL Eosinophils # 0.1 (0-0.7) k/uL Basophils # 0.0 (0-0.2) k/uL PT 84.9 H (9.0-12.0) sec INR 8.7 H* (<1.2) APTT 46.1 H (22.0-30.0) sec Disposition Clinical Impression: Coagulopathy Disposition: ADMITTED IP TO THIS HOSP Condition: Serious Referrals: Fred Gant DO [Primary Care Provider] - 1-2 days Decision to Admit Reason: Admit from EC Decision Date: 10/08/18 Decision Time: 19:44
[2018-10-08 18:06] LABS: Basophils % (A) 0 %; Eosinophils # (A) 0.1 k/uL (0-0.7); Eosinophils % (A) 1 %; HCT 39.1 % (34.0-46.0); HGB 12.7 gm/dL (11.4-16.0); Lymphocytes # (A) 2.3 k/uL (1.0-4.8); Lymphocytes % (A) 18 %; MCH 29.4 pg (25.0-35.0); MCHC 32.6 g/dL (31.0-37.0); MCV 90.3 fL (80.0-100.0); Mean Platelet Volume 8.3; Monocytes # (A) 0.8 k/uL (0-1.0); Monocytes % (A) 6 %; Neutrophils # (A) 9.4 k/uL (1.3-7.7); Neutrophils % (A) 72 %; Platelet Count 212 k/uL (150-450); RBC 4.33 m/uL (3.80-5.40); WBC 13.1 k/uL (3.8-10.6)
[2018-10-08 18:09] LABS: Partial Thromboplastin Time 46.1 sec (22.0-30.0)
[2018-10-08 18:20] LABS: Prothrombin Time 84.9 sec (9.0-12.0)
[2018-10-08 18:53] LABS: INR 8.7 (<1.2)
[2018-10-08] MEDS ORDERED: PHYTONADIONE ORAL 5 MG/5 ML ORAL.SYRG PO STA (19:31)
[2018-10-08] MEDS ORDERED: NALOXONE 0.4 MG/ML 1 ML VIAL IV PRN (19:42)
[2018-10-08] MEDS ORDERED: traMADol 50 MG TAB PO PRN (19:44)
[2018-10-08] MEDS ORDERED: ACETAMINOPHEN TAB 500 MG TAB PO PRN (19:44)
[2018-10-08] MEDS: PRAVASTATIN SODIUM 20 MG TAB PO SCH (21:47)
[2018-10-08] MEDS: MEMANTINE 10 MG TAB PO SCH (21:47)
[2018-10-09] MEDS: POTASSIUM CHLORIDE ER 10 MEQ TAB.ER.PRT PO SCH (07:55)
[2018-10-09] MEDS: CARVEDILOL 3.125 MG TAB PO SCH ×2 (07:55→17:29)
[2018-10-09] MEDS: FUROSEMIDE 20 MG TAB PO SCH (07:55)
[2018-10-09] MEDS: AMIODARONE 200 MG TAB PO SCH (07:55)
[2018-10-09] MEDS: MEMANTINE 10 MG TAB PO SCH ×2 (07:55→20:46)
[2018-10-09] MEDS: LOSARTAN 25 MG TAB PO SCH (07:56)
[2018-10-09 08:05] LABS: Basophils % (A) 0 %; Eosinophils # (A) 0.1 k/uL (0-0.7); Eosinophils % (A) 1 %; HGB 12.6 gm/dL (11.4-16.0); INR 2.6 (<1.2); Lymphocytes # (A) 2.4 k/uL (1.0-4.8); Lymphocytes % (A) 20 %; MCH 29.7 pg (25.0-35.0); MCHC 32.4 g/dL (31.0-37.0); MCV 91.9 fL (80.0-100.0); Mean Platelet Volume 7.4; Monocytes # (A) 0.6 k/uL (0-1.0); Monocytes % (A) 5 %; Neutrophils # (A) 8.3 k/uL (1.3-7.7); Neutrophils % (A) 70 %; Platelet Count 193 k/uL (150-450); Prothrombin Time 24.9 sec (9.0-12.0); RBC 4.24 m/uL (3.80-5.40); RDW 14.7 % (11.5-15.5); WBC 11.9 k/uL (3.8-10.6)
[2018-10-09] MEDS: LIDOCAINE 5% PATCH TOPICAL SCH (09:14)
[2018-10-09 13:22] VITALS: BMI 13.7
[2018-10-09] MEDS ORDERED: WARFARIN 1 MG TAB PO ONE (19:00)
[2018-10-10] MEDS: CARVEDILOL 3.125 MG TAB PO SCH ×2 (07:28→17:29)
[2018-10-10] MEDS: FUROSEMIDE 20 MG TAB PO SCH (07:28)
[2018-10-10] MEDS: LOSARTAN 25 MG TAB PO SCH (07:28)
[2018-10-10] MEDS: MEMANTINE 10 MG TAB PO SCH (07:28)
[2018-10-10] MEDS: AMIODARONE 200 MG TAB PO SCH (07:28)
[2018-10-10] MEDS: POTASSIUM CHLORIDE ER 10 MEQ TAB.ER.PRT PO SCH (07:28)
[2018-10-10] MEDS: LIDOCAINE 5% PATCH TOPICAL SCH (07:29)
[2018-10-10 07:43] LABS: Basophils % (A) 0 %; Eosinophils % (A) 0 %; HCT 41.5 % (34.0-46.0); HGB 13.2 gm/dL (11.4-16.0); Lymphocytes # (A) 1.5 k/uL (1.0-4.8); Lymphocytes % (A) 8 %; MCH 29.5 pg (25.0-35.0); MCHC 31.9 g/dL (31.0-37.0); MCV 92.5 fL (80.0-100.0); Mean Platelet Volume 7.3; Monocytes # (A) 0.7 k/uL (0-1.0); Monocytes % (A) 3 %; Neutrophils # (A) 17.3 k/uL (1.3-7.7); Neutrophils % (A) 87 %; Platelet Count 198 k/uL (150-450); RBC 4.49 m/uL (3.80-5.40); RDW 14.8 % (11.5-15.5); WBC 19.9 k/uL (3.8-10.6)
[2018-10-10 07:52] LABS: Calcium 9.6 mg/dL (8.4-10.2); Potassium 4.7 mmol/L (3.5-5.1)
[2018-10-10 07:53] LABS: INR 1.2 (<1.2); Prothrombin Time 12.6 sec (9.0-12.0)
--- NOTE | 2018-10-10 15:46 | P.HPIM ---
History of Present Illness H&P Date: 10/09/18 Chief Complaint: Elevated INR 77-year-old female patient presents to the emergency department today for evaluation of elevated INR. Patient does take Coumadin for history of atrial fibrillation and has had elevated INRs this week. Did have a 7.6 INR at the beginning of the week, she did skip 3 doses of Coumadin on recheck the INR was then 8. The outside sales account representative to try to order outpatient vitamin K however dosages were unavailable local pharmacies. Patient was sent to the emergency department for further evaluation and dosing. Patient denies any current active bleeding. Denies any headache, blurred vision, or double vision. Denies any hematochezia or melena. Patient denies any recent rash, fever, chills, shortness breath, chest pain, abdominal pain, nausea, vomiting, diarrhea, constipation, back pain, numbness, tingling, dizziness, weakness, hematuria, dysuria, urinary urgency, urinary frequency, headache, visual changes, or any other complaints. Workup in ED showed an INR of 8.6; patient was given a dose of vitamin K and is admitted to the hospital for close observation Review of Systems Constitutional: Denies chills, Denies fever Eyes: denies blurred vision Cardiovascular: Denies chest pain Respiratory: Denies cough with sputum Gastrointestinal: Denies abdominal pain, Denies melena, Denies nausea, Denies vomiting Genitourinary: Denies hematuria Past Medical History Past Medical History: Atrial Fibrillation, COPD, Hypertension History of Any Multi-Drug Resistant Organisms: None Reported Past Surgical History: Pacemaker Additional Past Surgical History / Comment(s): pacer 06/16/2018 Type of Cardiac Device: Biventricular Pacemaker Device Placement Date:: 06/16/2018 Past Psychological History: No Psychological Hx Reported Smoking Status: Former smoker Past Alcohol Use History: None Reported Past Drug Use History: None Reported Medications and Allergies Home Medications Medication Instructions Recorded Confirmed Type Acetaminophen Tab [Tylenol] 1,000 mg PO Q6H PRN 10/07/13 10/08/18 History Amiodarone [Cordarone] 200 mg PO DAILY 09/06/18 10/08/18 History Carvedilol [Coreg] 3.125 mg PO BID 09/06/18 10/08/18 History Losartan [Cozaar] 25 mg PO DAILY 09/06/18 10/08/18 History Memantine [Namenda] 10 mg PO BID 09/06/18 10/08/18 History Pravastatin Sodium [Pravachol] 20 mg PO HS 09/06/18 10/08/18 History Prune-Lax 2 tab PO DAILY 09/06/18 10/08/18 History Lidocaine 5% Patch [Lidoderm 5% 1 patch TOPICAL DAILY #7 patch 09/09/18 10/08/18 Rx Patch] Furosemide [Lasix] 20 mg PO DAILY 10/08/18 10/08/18 History Potassium Chloride ER [K-Dur 10] 10 meq PO DAILY 10/08/18 10/08/18 History Warfarin [Coumadin] 2 mg PO HS 10/08/18 10/08/18 History traMADol HCL [Ultram] 50 mg PO Q8H PRN 10/08/18 10/08/18 History Allergies Allergy/AdvReac Type Severity Reaction Status Date / Time amiodarone AdvReac Confusion Verified 10/08/18 17:27 Physical Exam Vitals: Vital Signs Temp Pulse Pulse Resp BP BP Pulse Ox 10/09/18 07:31 98.2 F 58 L 14 154/70 96 10/09/18 05:44 98.2 F 62 18 146/74 100 10/09/18 03:31 16 10/09/18 00:00 60 16 10/08/18 23:51 98.3 F 59 L 16 150/73 96 10/08/18 21:00 98.2 F 61 16 176/78 97 10/08/18 17:10 97.6 F 60 18 99/58 98 Intake and Output 10/08/18 10/09/18 10/09/18 22:59 06:59 14:59 Intake Total 100 Balance 100 Intake: Oral 100 Other: Voiding Method Toilet # Voids 1 1 Weight 37.24 kg 37.5 kg 37.5 kg Limitations: no limitations General appearance: alert, in no apparent distress, other (Physical well- developed, well-nourished elderly female patient in no acute distress. Vital signs upon presentation are temperature 97.6F, pulse 60, respirations 18, blood pressure 99/58, pulse ox 98% on room air.) Eye exam: Present: normal appearance, PERRL, EOMI. Absent: scleral icterus, conjunctival injection, periorbital swelling ENT exam: Present: normal exam, normal oropharynx, mucous membranes moist Respiratory exam: Present: normal lung sounds bilaterally. Absent: respiratory distress, wheezes, rales, rhonchi, stridor Cardiovascular Exam: Present: regular rate, normal rhythm, normal heart sounds. Absent: systolic murmur, diastolic murmur, rubs, gallop, clicks GI/Abdominal exam: Present: soft, normal bowel sounds. Absent: distended, tenderness, guarding, rebound, rigid Neurological exam: Present: alert, oriented X3, CN II-XII intact Psychiatric exam: Present: normal affect, normal mood Skin exam: Present: warm, dry, intact, normal color. Absent: rash Results CBC & Chem 7: 10/10/18 06:53 10/10/18 06:53 Labs: Abnormal Lab Results - Last 24 Hours (Table) 10/08/18 10/08/18 10/09/18 Range/Units 17:51 17:51 07:12 WBC 13.1 H 11.9 H (3.8-10.6) k/uL Neutrophils # 9.4 H 8.3 H (1.3-7.7) k/uL PT 84.9 H (9.0-12.0) sec INR 8.7 H* (<1.2) APTT 46.1 H (22.0-30.0) sec 10/09/18 Range/Units 07:12 WBC (3.8-10.6) k/uL Neutrophils # (1.3-7.7) k/uL PT 24.9 H (9.0-12.0) sec INR 2.6 H (<1.2) APTT (22.0-30.0) sec Thrombosis Risk Factor Assmnt - Choose All That Apply Any of the Below Risk Factors Present?: No Other Risk Factors: No Each Risk Factor Represents 3 Points: Age 75 years or older Other congenital or acquired thrombophilia - If yes, enter type in comment: No Thrombosis Risk Factor Assessment Total Risk Factor Score: 3 Thrombosis Risk Factor Assessment Level: Very Low Risk Assessment and Plan Assessment: 1. Coagulopathy secondary to Coumadin - Patient's repeat INR is 2.6 this morning; we will consult pharmacy to dose Coumadin with close monitoring of INR - Discharge home once INR is therapeutic and Coumadin doses adjusted 2. Chronic atrial fibrillation; rate controlled with amiodarone 200 MG daily and Coreg 3.125 mg twice a day; anticoagulation with Coumadin 3. Hypertension; continue with home dose of Coreg 3.125 mg twice a day and Cozaar 25 mg daily 4. Hyperlipidemia; Pravachol 20 mg by mouth daily at bedtime 5. DVT prophylaxis; SCDs only due to elevated INR CODE STATUS; full code Time with Patient: Greater than 30
--- NOTE | 2018-10-10 15:52 | P.PN ---
Subjective Progress Note Date: 10/10/18 Principal diagnosis: Coagulopathy secondary to Coumadin 77-year-old female patient presents to the emergency department today for evaluation of elevated INR. Patient does take Coumadin for history of atrial fibrillation and has had elevated INRs this week. Did have a 7.6 INR at the beginning of the week, she did skip 3 doses of Coumadin on recheck the INR was then 8. The or first assist registered nurse to try to order outpatient vitamin K however dosages were unavailable local pharmacies. Patient was sent to the emergency department for further evaluation and dosing. 10/10/2018 Patient is seen and evaluated in the room at bedside; patient denies any specific complaints but nursing staff is reporting 3 episodes of watery diarrhea Vital signs remained stable with a temperature of 97.6, pulse 60, respiration 14 and blood pressure 113/66 Review of labs show an elevated creatinine of 1.26 and an elevated white blood count of 19.9; we plan to start patient on slow IV fluid hydration with normal saline; we will monitor strict SILVIO's, daily weights, renal function and electrolytes We will order chest x-ray, blood culture, urine culture and C. diff toxin; we wi ll empirically start patient on IV vancomycin 125 mg 4 times a day; we will monitor CBC closely; recommend ID consult if workup remains negative for any infectious etiology and white blood count continues to escalate Objective - Vital Signs Vital signs: Vital Signs Temp 97.6 F 10/10/18 07:24 Pulse 60 10/10/18 07:24 Resp 14 10/10/18 07:24 BP 113/66 10/10/18 07:24 Pulse Ox 95 10/10/18 07:24 Intake & Output 10/09/18 10/10/18 10/10/18 18:59 06:59 18:59 Intake Total 340 810 Balance 340 810 Weight 37.5 kg Intake: Oral 340 810 Other: Voiding Method Toilet Toilet # Voids 2 3 # Bowel Movements 1 - Exam PHYSICAL EXAMINATION: GENERAL: The patient is alert and oriented x3, not in any acute distress. Well d eveloped, well nourished. HEENT: Pupils are round and equally reacting to light. EOMI. No scleral icterus. No conjunctival pallor. Normocephalic, atraumatic. No pharyngeal erythema. No thyromegaly. CARDIOVASCULAR: S1 and S2 present. No murmurs, rubs, or gallops. PULMONARY: Chest is clear to auscultation, no wheezing or crackles. ABDOMEN: Soft, nontender, nondistended, normoactive bowel sounds. No palpable organomegaly. MUSCULOSKELETAL: No joint swelling or deformity. EXTREMITIES: No cyanosis, clubbing, or pedal edema. NEUROLOGICAL: Gross neurological examination did not reveal any focal deficits. SKIN: No rashes. - Labs CBC & Chem 7: 10/10/18 06:53 10/10/18 06:53 Labs: Abnormal Lab Results - Last 24 Hours (Table) 10/10/18 10/10/18 10/10/18 Range/Units 06:53 06:53 06:53 WBC 19.9 H (3.8-10.6) k/uL Neutrophils # 17.3 H (1.3-7.7) k/uL PT 12.6 H (9.0-12.0) sec INR 1.2 H (<1.2) Carbon Dioxide 31 H (22-30) mmol/L BUN 32 H (7-17) mg/dL Creatinine 1.26 H (0.52-1.04) mg/dL Glucose 137 H (74-99) mg/dL Assessment and Plan Assessment: 1. Coagulopathy secondary to Coumadin - Patient's repeat INR is 2.6 this morning; we will consult pharmacy to dose Coumadin with close monitoring of INR - Discharge home once INR is therapeutic and Coumadin doses adjusted 2. Chronic atrial fibrillation; rate controlled with amiodarone 200 MG daily and Coreg 3.125 mg twice a day; anticoagulation with Coumadin 3. Hypertension; continue with home dose of Coreg 3.125 mg twice a day and Cozaar 25 mg daily 4. Hyperlipidemia; Pravachol 20 mg by mouth daily at bedtime 5. DVT prophylaxis; SCDs only due to elevated INR CODE STATUS; full code Time with Patient: Greater than 30
[2018-10-10] MEDS: SODIUM CHLORIDE 0.9% 1,000 ML IV SCH (16:14)
[2018-10-10] MEDS: VANCOMYCIN ORAL SOLUTION 250 MG/5 ML BOTTLE PO SCH (17:29)
[2018-10-10] MEDS ORDERED: WARFARIN 2 MG TAB PO ONE (18:00)
[2018-10-10 20:01] VITALS: RESP 16
[2018-10-10] MEDS: PRAVASTATIN SODIUM 20 MG TAB PO SCH (20:15)
[2018-10-10] MEDS: MEMANTINE 5 MG TAB PO SCH (20:15)
[2018-10-11] MEDS: CHERRY FLAVOR 60 ML BOTTLE PO PRN ×3 (00:48→11:47)
[2018-10-11] MEDS: VANCOMYCIN ORAL SOLUTION 250 MG/5 ML BOTTLE PO SCH ×3 (00:49→11:46)
[2018-10-11] MEDS: SODIUM CHLORIDE 0.9% 1,000 ML IV SCH (05:53)
[2018-10-11] MEDS: POTASSIUM CHLORIDE ER 10 MEQ TAB.ER.PRT PO SCH (07:56)
[2018-10-11] MEDS: LOSARTAN 25 MG TAB PO SCH (08:01)
[2018-10-11] MEDS: FUROSEMIDE 20 MG TAB PO SCH (08:01)
[2018-10-11] MEDS: CARVEDILOL 3.125 MG TAB PO SCH (08:01)
[2018-10-11] MEDS: AMIODARONE 200 MG TAB PO SCH (08:01)
[2018-10-11] MEDS: MEMANTINE 5 MG TAB PO SCH (08:01)
[2018-10-11] MEDS: LIDOCAINE 5% PATCH TOPICAL SCH (08:02)
[2018-10-11 08:11] VITALS: BP 123/71; PULSE 59; TEMP 97.9
[2018-10-11 09:02] LABS: Basophils % (A) 0 %; Eosinophils # (A) 0.1 k/uL (0-0.7); Eosinophils % (A) 0 %; HCT 35.2 % (34.0-46.0); Lymphocytes # (A) 2.4 k/uL (1.0-4.8); Lymphocytes % (A) 15 %; MCH 29.1 pg (25.0-35.0); MCHC 31.3 g/dL (31.0-37.0); MCV 93.1 fL (80.0-100.0); Monocytes # (A) 0.7 k/uL (0-1.0); Monocytes % (A) 5 %; Neutrophils # (A) 11.8 k/uL (1.3-7.7); Neutrophils % (A) 76 %; Platelet Count 179 k/uL (150-450); RBC 3.78 m/uL (3.80-5.40); RDW 15.4 % (11.5-15.5); WBC 15.5 k/uL (3.8-10.6)
[2018-10-11 09:12] LABS: Calcium 8.5 mg/dL (8.4-10.2); Potassium 4.1 mmol/L (3.5-5.1)
[2018-10-11 09:18] LABS: INR 1.4 (<1.2)
[2018-10-11] MEDS ORDERED: WARFARIN 1 MG TAB PO ONE (18:00)
--- NOTE | 2018-10-12 08:34 | DS ---
DISCHARGE SUMMARY DATE OF SERVICE: 10/11/2018 FINAL DIAGNOSES: 1. Coumadin coagulopathy. 2. Chronic atrial fibrillation. 3. Hypertension. 4. Hyperlipidemia. DISCHARGE DISPOSITION: The patient will be discharged in a stable condition with guarded prognosis. HISTORY OF PRESENT ILLNESS: This is a 77-year-old woman with a past medical history of multiple medical problems, was admitted from [facility] with Coumadin coagulopathy. INR was found to be 8.7, no active bleeding was noted. Hemoglobin is monitored and rather stable at 11. INR is 1.4. Patient was treated symptomatically. Patient improved significantly. On exam, vitals are stable. CARDIOVASCULAR SYSTEM: S1, S2. ABDOMEN: Soft. NERVOUS SYSTEM: No focal deficits. Patient discharged in stable condition with guarded prognosis with the following advice. Diet is cardiac diet. Follow up with Dr. Gant in 2 to 3 days. Home care is being arranged. MEDICATIONS: 1. Cordarone 200 mg p.o. daily. 2. Coreg 3.02 mg p.o. b.i.d. 3. Coumadin 2 mg p.o. q.h.s. 4. Cozaar 25 mg p.o. daily. 5. K-Dur 10 mg p.o. daily. 6. Lasix 20 mg p.o. daily. 7. Namenda 10 mg p.o. b.i.d. 8. Pravachol 20 mg q.h.s. 9. Tylenol p.r.n. 10.Ultram 50 mg q.8 p.r.n. 11.Coumadin 1 mg p.o. daily. 12.Lidocaine patch as before. CBC, BMP in the outpatient setting. MMODL / IJN: [id number] /
== END 2018-10-11 13:10 ==
LOC: EC 17:01 → 1SOBS 19:27 → 4SSUR 10-09 04:59
PROVIDERS: ADMIT Hospitalist; ATTEND Hospitalist
DX: D68.9 Coagulation defect, unspecified (principal); T45.515A Adverse effect of anticoagulants, initial encounter; I48.2 Chronic atrial fibrillation; R19.7 Diarrhea, unspecified; I10 Essential (primary) hypertension; D72.829 Elevated white blood cell count, unspecified; R79.89 Other specified abnormal findings of blood chemistry; E78.5 Hyperlipidemia, unspecified; J44.9 Chronic obstructive pulmonary disease, unspecified; Z87.891 Personal history of nicotine dependence; Z95.0 Presence of cardiac pacemaker; Z79.01 Long term (current) use of anticoagulants; Z79.899 Other long term (current) drug therapy; Z88.8 Allergy status to other drugs, medicaments and biological substances
CPT/HCPCS: 99284; 36415; 80048 ×2; 85025 ×4; 85610 ×4; 85730; 87040; 87086; 87077; 87186; G0378 ×4

== ENCOUNTER → 2018-10-26 | Outpatient (CLI) | payer MEDICARE ==
[2018-10-26 08:59] LABS: INR 1.9 (<1.2); Prothrombin Time 18.9 sec (9.0-12.0)
[2018-10-26 16:23] LABS: Anion Gap 11.1 mmol/L (4.00-12.00); Calcium 8.9 mg/dL (8.7-10.3); Carbon Dioxide 26.9 mmol/L (21.6-31.8); Potassium 4.6 mmol/L (3.5-5.5)
== END | disposition home or self-care (01) ==
LOC: LABWHC1 08:17
PROVIDERS: ATTEND Physician Assistant
DX: I50.32 Chronic diastolic (congestive) heart failure (principal); I48.2 Chronic atrial fibrillation
CPT/HCPCS: 36415; 80048; 85610

== ENCOUNTER 2018-11-09 16:16 | Inpatient (IN) | payer MEDICARE ==
--- NOTE | 2018-11-09 18:07 | ED ---
Fall HPI - General Chief Complaint: Fall Stated Complaint: FALL Time Seen by Provider: 11/09/18 16:48 Source: patient, EMS, RN notes reviewed, old records reviewed Mode of arrival: EMS - History of Present Illness Initial Comments: This is a 78-year-old female the ER for evaluation. Patient resents today for evaluation status post fall 3 days ago patient fell complaining of left hip pain today. Unable to amylase a she was able to get around with assistance prior. Patient denies any other complaints or injuries from trauma. No blood thinners MD Complaint: fall -: days(s) (3) When Fall Occurred: # days [employer] (3) Fall Witnessed: yes, by family Place Fall Occurred: home Prolonged Down Time?: no Symptoms Prior to Fall: none Location: pelvis Location - Extremities: Right: Thigh Severity: moderate Severity scale (1-10): 3 Quality: stabbing Context: tripped/slipped Associated Symptoms: denies - Related Data Home Medications Medication Instructions Recorded Confirmed Acetaminophen Tab [Tylenol] 1,000 mg PO Q6H PRN 10/07/13 11/09/18 Amiodarone [Cordarone] 200 mg PO DAILY 09/06/18 11/09/18 Carvedilol [Coreg] 3.125 mg PO BID 09/06/18 11/09/18 Losartan [Cozaar] 25 mg PO DAILY 09/06/18 11/09/18 Memantine [Namenda] 10 mg PO BID 09/06/18 11/09/18 Pravastatin Sodium [Pravachol] 20 mg PO HS 09/06/18 11/09/18 Prune-Lax 2 tab PO DAILY 09/06/18 11/09/18 Furosemide [Lasix] 20 mg PO DAILY 10/08/18 11/09/18 Potassium Chloride ER [K-Dur 10] 10 meq PO DAILY 10/08/18 11/09/18 Warfarin [Coumadin] 0.5 mg PO SUMOWEFRSA 11/09/18 11/09/18 Warfarin [Coumadin] 1 mg PO TUTH 11/09/18 11/09/18 Previous Rx's Medication Instructions Recorded Lidocaine 5% Patch [Lidoderm 5% 1 patch TOPICAL DAILY #7 patch 09/09/18 Patch] Allergies Allergy/AdvReac Type Severity Reaction Status Date / Time amiodarone AdvReac Confusion Verified 11/09/18 17:32 Review of Systems ROS Statement: Those systems with pertinent positive or pertinent negative responses have been documented in the HPI. ROS Other: All systems not noted in ROS Statement are negative. Past Medical History Past Medical History: Atrial Fibrillation, COPD, Hypertension History of Any Multi-Drug Resistant Organisms: None Reported Past Surgical History: Pacemaker Additional Past Surgical History / Comment(s): pacer 06/16/2018 Type of Cardiac Device: Biventricular Pacemaker Device Placement Date:: 06/16/2018 Past Psychological History: No Psychological Hx Reported Smoking Status: Former smoker Past Alcohol Use History: None Reported Past Drug Use History: None Reported - Past Family History Father History Unknown: Yes General Exam Limitations: physical limitation General appearance: alert, in no apparent distress Head exam: Present: atraumatic, normocephalic, normal inspection Eye exam: Present: normal appearance, PERRL, EOMI. Absent: scleral icterus, conjunctival injection, periorbital swelling ENT exam: Present: normal exam, mucous membranes moist Neck exam: Present: normal inspection. Absent: tenderness, meningismus, lymphadenopathy Respiratory exam: Present: normal lung sounds bilaterally. Absent: respiratory distress, wheezes, rales, rhonchi, stridor Cardiovascular Exam: Present: regular rate, normal rhythm, normal heart sounds. Absent: systolic murmur, diastolic murmur, rubs, gallop, clicks GI/Abdominal exam: Present: soft, normal bowel sounds. Absent: distended, tenderness, guarding, rebound, rigid Extremities exam: Present: normal inspection, full ROM, normal capillary refill. Absent: tenderness, pedal edema, joint swelling, calf tenderness Back exam: Present: normal inspection Neurological exam: Present: alert, oriented X3, CN II-XII intact Psychiatric exam: Present: normal affect, normal mood Skin exam: Present: warm, dry, intact, normal color. Absent: rash Course Vital Signs 11/09/18 16:32 Temperature 98.2 F Pulse Rate 66 Respiratory 16 Rate Blood Pressure 148/78 O2 Sat by Pulse 97 Oximetry - Reevaluation(s) Reevaluation #1: 11/09/18 18:24 Medical record is reviewed Reevaluation #2: 11/09/18 18:24 Patient does have positive fracture, no prior orthopedic relationship Medical Decision Making - Medical Decision Making 78 female the ER status post fall fall sustaining left hip fracture. Patient be admitted for orthopedic consultation - EKG Data -: EKG Interpreted by Me (EKG shows paced rhythm rate of 60, MN 144, QRS 124, QTc 460) - Radiology Data Radiology results: report reviewed (X-ray left hip shows positive fracture, chest x-rays negative for acute disease), image reviewed Disposition Clinical Impression: Fall, Hip fracture, left Disposition: ADMITTED IP TO THIS [facility] Condition: Fair Is patient prescribed a controlled substance at d/c from ED?: No Referrals: None,Stated [REFERRING] - 1-2 days
[2018-11-09] MEDS ORDERED: SODIUM CHLORIDE 0.9% 500 ML 500 ML IV STA (18:25)
[2018-11-09] MEDS ORDERED: SODIUM CHLORIDE 0.9% 1,000 ML IV ONE (18:25)
[2018-11-09] MEDS ORDERED: MORPHINE SULFATE 4 MG/ML SYRINGE IV STA (18:25)
--- NOTE | 2018-11-09 19:03 | XR ---
PROCEDURE: XR Hip LT and AP Pelvis - 3V DATE AND TIME: 11/09/2018 5:55 PM CLINICAL INDICATION: PHH; Pain TECHNIQUE: Department protocol COMPARISON: None FINDINGS: There is a subcapital left femoral neck fracture which appears minimally angulated but not displaced. Femoral head is well-seated within the acetabulum. IMPRESSION: LEFT FEMORAL NECK FRACTURE.
[2018-11-09 19:12] LABS: INR 2.9 (<1.2); Partial Thromboplastin Time 38.6 sec (22.0-30.0); Prothrombin Time 27.8 sec (9.0-12.0)
[2018-11-09 19:16] LABS: Albumin 3.2 g/dL (3.5-5.0); Calcium 8.8 mg/dL (8.4-10.2); Magnesium 1.8 mg/dL (1.6-2.3); Phosphorus 3.8 mg/dL (2.5-4.5); Potassium 4.3 mmol/L (3.5-5.1); Total Bilirubin 0.7 mg/dL (0.2-1.3); Total Protein 5.7 g/dL (6.3-8.2)
[2018-11-09 19:26] LABS: Anisocytosis Slight; Basophils # (A) 0.1 k/uL (0-0.2); Basophils % (A) 0 %; Eosinophils # (A) 0.1 k/uL (0-0.7); Eosinophils % (A) 1 %; HCT 34.2 % (34.0-46.0); Lymphocytes # (A) 3.4 k/uL (1.0-4.8); Lymphocytes % (A) 32 %; MCH 29.2 pg (25.0-35.0); MCHC 32.2 g/dL (31.0-37.0); MCV 90.5 fL (80.0-100.0); Mean Platelet Volume 7.7; Monocytes # (A) 0.7 k/uL (0-1.0); Monocytes % (A) 7 %; Neutrophils % (A) 57 %; Platelet Count 154 k/uL (150-450); RBC 3.78 m/uL (3.80-5.40); RDW 17.6 % (11.5-15.5); WBC 10.6 k/uL (3.8-10.6)
[2018-11-09 20:29] LABS: Appearance,Urine Clear (Clear); Bilirubin,Urine Negative (Negative); Blood,Urine Negative (Negative); Color,Urine Light Yellow; Glucose,Urine (UA) Negative (Negative); Ketones,Urine Negative (Negative); Leukocyte Esterase,Urine Negative (Negative); Nitrite,Urine Negative (Negative); Protein,Urine Negative (Negative); Specific Gravity,Urine 1.007 (1.001-1.035); Urobilinogen,Urine <2.0 mg/dL (<2.0)
[2018-11-09] MEDS ORDERED: MORPHINE SULFATE 4 MG/ML SYRINGE IVP STA (20:34)
[2018-11-09] MEDS ORDERED: MORPHINE SULFATE 4 MG/ML SYRINGE IVP PRN (20:34)
[2018-11-09 21:08] VITALS: BMI 14.6
[2018-11-09] MEDS: CARVEDILOL 3.125 MG TAB PO SCH (22:36)
[2018-11-09] MEDS: PRAVASTATIN SODIUM 20 MG TAB PO SCH (22:36)
[2018-11-09] MEDS: ACETAMINOPHEN TAB 500 MG TAB PO PRN (22:36)
[2018-11-09] MEDS: MEMANTINE 10 MG TAB PO SCH (22:36)
--- NOTE | 2018-11-10 07:48 | CONS ---
CONSULTATION DATE OF SERVICE: 11/09/2018 REASON FOR CONSULTATION: Advice regarding atrial fibrillation and other multiple medical issues requested by Dr. Shaver. HISTORY OF PRESENT ILLNESS: This 78-year-old woman with a past medical history of multiple medical problems including history of atrial fibrillation, COPD, dementia, hypertension, also had a pacemaker implantation. The patient apparently fell at home and was walking for 3 days. The patient is complaining of left hip pain and the patient had some increased difficulty in ambulation. Patient came to [facility] and was admitted for further evaluation and treatment. The hip x-ray showed evidence of left femoral neck fracture and the patient admitted for further evaluation. Patient is confused which is probably at baseline. There is no history of fever, rigors. No headache, loss of consciousness or seizures. PAST MEDICAL HISTORY: History of COPD, atrial fibrillation, dementia, hypertension, , pacemaker. MEDICATIONS: Prior to admission: 1. Coumadin 1 mg p.o. Thursday, , 0.5 mg and Thursday, Thursday, Thursday, Thursday, Thursday. 2. Prune lax 2 tablets p.o. daily. 3. Pravachol 20 mg q.h.s. 4. K-Dur 10 mEq p.o. daily. 5. Namenda 10 mg p.o. daily. 6. Cozaar 25 mg p.o. daily. 7. Lidoderm patch daily. 8. Lasix 20 mg p.o. daily. 9. Coreg 3.125 mg p.o. daily. 10.Cordarone 200 mg p.o. daily. 11.Tylenol 1000 mg q.6h p.r.n. ALLERGIES: AMIODARONE. Family history, social history and review of systems: Could not be taken the patient is confused. PHYSICAL EXAMINATION: GENERAL: Patient is conscious, oriented x1. VITAL SIGNS: Pulse 62, blood pressure 185/72, respirations 18, temperature 98 degrees, pulse ox 94% on room air. HEENT is conjunctivae normal. Oral mucosa moist. NECK is no jugular venous distention. No carotid bruit. No lymph node enlargement. CARDIOVASCULAR: S1, S2 muffled. RESPIRATIONS: Breath sounds diminished in the bases. A few scattered rhonchi. No crackles. ABDOMEN: Soft. Minimal diffuse distention. Otherwise nontender. No mass palpable. LEGS: Status post left hip fracture. NERVOUS SYSTEM: Higher functions as mentioned earlier. Moves all 4 limbs. No focal motor or sensory deficits. LYMPHATICS: No lymph nodes palpable in the neck, axillae or groin. JOINTS: No active deforming arthropathy. LAB STUDIES: WBC 10.7, hemoglobin 11, INR is 2.9, and creatinine is 1.24. ASSESSMENT: 1. Status post left hip fracture and fall. 2. Gait dysfunction. 3. Coumadin monitoring. 4. Increased creatinine with possible chronic kidney disease stage III. 5. Anemia, normocytic anemia of chronic disease. 6. History of atrial fibrillation. 7. History of pacemaker. 8. Chronic obstructive pulmonary disease. 9. Dementia. 10.Hypertension. 11.History of section. 12.History of biventricular pacemaker. 13.Remote history of nicotine dependence. 14.Moderate to severe protein calorie malnutrition with a BMI 14.6. 15.FULL CODE. RECOMMENDATIONS AND DISCUSSION: This 78-year-old woman admitted with multiple medical problems. At this time, I recommend continue the current medications. Hold Coumadin and monitor the PT, INR closely. Otherwise, I would also recommend Cardiology consultation. Patient appears to be normal sinus rhythm. At this time, I recommend continue with telemetry and resume the home medications. Currently patient is medically stable. The patient will be cleared for surgery after seen by Cardiology and we will follow the patient closely with you. Repeat labs are ordered. Thank you Dr. Harmon for letting us participate in the care of this patient. Overall prognosis guarded. MMODL / IJN: [id number] /
[2018-11-10 08:14] LABS: INR 2.6 (<1.2); Prothrombin Time 25.3 sec (9.0-12.0)
[2018-11-10] MEDS: CARVEDILOL 3.125 MG TAB PO SCH ×2 (08:52→19:10)
[2018-11-10] MEDS ORDERED: ENOXAPARIN 30 MG/0.3 ML SYRINGE SQ SCH (09:00)
[2018-11-10] MEDS ORDERED: ENOXAPARIN 40 MG/0.4 ML SYRINGE SQ SCH (09:00)
--- NOTE | 2018-11-10 09:07 | P.HPOR ---
History of Present Illness H&P Date: 11/10/18 This is a 78-year-old female who is admitted for left hip fracture after a fall. The patient's past medical history is significant for atrial fibrillation, COPD, dementia and hypertension. Patient is seen and evaluated at bedside with Dr. Fred Arellano. The patient's states that the patient has had trouble walking for the past month and on 11/07/2018 the patient had a fall at home. Patient's states that he found the patient on the floor, but was able to stand her back up. Patient's states that the patient was able to walk on the left leg for the next 2 days, but on Thursday could not bear any weight on the left leg. The patient was taken to the emergency room via EMS and x-rays revealed a femoral neck fracture of the left femur. Patient states that her pain is under control today, but she does notice pain when lifting the left arm above her head. Patient denies any fever/chills, nausea, abdominal pain, shortness of breath, chest pain, numbness, weakness or tingling. Review of Systems See HPI. Past Medical History Past Medical History: Atrial Fibrillation, COPD, Dementia, Hypertension History of Any Multi-Drug Resistant Organisms: None Reported Past Surgical History: Section, Pacemaker Additional Past Surgical History / Comment(s): pacer 06/16/2018, thumb join replaced, 3rd pacemaker, cataract surgery Additional Past Anesthesia/Blood Transfusion Reaction / Comment(s): patient had unstable mood after anesthesia in June Type of Cardiac Device: Biventricular Pacemaker Device Placement Date:: 06/16/2018 Past Psychological History: No Psychological Hx Reported Smoking Status: Former smoker Past Alcohol Use History: None Reported Past Drug Use History: None Reported - Past Family History Father History Unknown: Yes Medications and Allergies Home Medications Medication Instructions Recorded Confirmed Type Acetaminophen Tab [Tylenol] 1,000 mg PO Q6H PRN 10/07/13 11/09/18 History Amiodarone [Cordarone] 200 mg PO DAILY 09/06/18 11/09/18 History Carvedilol [Coreg] 3.125 mg PO BID 09/06/18 11/09/18 History Losartan [Cozaar] 25 mg PO DAILY 09/06/18 11/09/18 History Memantine [Namenda] 10 mg PO BID 09/06/18 11/09/18 History Pravastatin Sodium [Pravachol] 20 mg PO HS 09/06/18 11/09/18 History Prune-Lax 2 tab PO DAILY 09/06/18 11/09/18 History Lidocaine 5% Patch [Lidoderm 5% 1 patch TOPICAL DAILY #7 patch 09/09/18 11/09/18 Rx Patch] Furosemide [Lasix] 20 mg PO DAILY 10/08/18 11/09/18 History Potassium Chloride ER [K-Dur 10] 10 meq PO DAILY 10/08/18 11/09/18 History Warfarin [Coumadin] 0.5 mg PO SUMOWEFRSA 11/09/18 11/09/18 History Warfarin [Coumadin] 1 mg PO TUTH 11/09/18 11/09/18 History Allergies Allergy/AdvReac Type Severity Reaction Status Date / Time amiodarone AdvReac Confusion Verified 11/09/18 17:32 Physical Examination On exam patient is lying comfortably in bed in no acute distress. Patient is alert and oriented 3. Bilateral lower extremities are warm and well perfused. Left lower extremity is slightly externally rotated. No pain with log roll of the right lower extremity. Calves are soft and nontender bilaterally. Posterior tibial pulses are 2+. Skin is intact. Sensation intact. Patient has full bilateral foot and ankle motion without pain or difficulty. Neurovascular status and circulatory status are intact. Patient has pain with raising the left arm above her head. There is tenderness to palpation over the left shoulder. There is no erythema, swelling or ecchymosis. Skin is intact. Patient has no pain when raising the right arm above her head. There is no tenderness to palpation over the right upper extremity. Patient has no pain with range of motion of the head and neck. Head is normocephalic and atraumatic. Sensation intact. Neurovascular status circulatory status are intact. Results X-rays of the left hip and pelvis show a femoral neck fracture of the left femur. - Labs Labs: Abnormal Lab Results - Last 24 Hours (Table) 11/09/18 11/09/18 11/09/18 Range/Units 18:42 18:42 18:42 RBC 3.78 L (3.80-5.40) m/uL Hgb 11.0 L (11.4-16.0) gm/dL RDW 17.6 H (11.5-15.5) % PT 27.8 H (9.0-12.0) sec INR 2.9 H (<1.2) APTT 38.6 H (22.0-30.0) sec BUN 24 H (7-17) mg/dL Creatinine 1.24 H (0.52-1.04) mg/dL Creatine Kinase 22 L (30-135) U/L Total Protein 5.7 L (6.3-8.2) g/dL Albumin 3.2 L (3.5-5.0) g/dL 11/10/18 Range/Units 07:30 RBC (3.80-5.40) m/uL Hgb (11.4-16.0) gm/dL RDW (11.5-15.5) % PT 25.3 H (9.0-12.0) sec INR 2.6 H (<1.2) APTT (22.0-30.0) sec BUN (7-17) mg/dL Creatinine (0.52-1.04) mg/dL Creatine Kinase (30-135) U/L Total Protein (6.3-8.2) g/dL Albumin (3.5-5.0) g/dL Microbiology - Last 24 Hours (Table) 11/09/18 20:22 Urine Culture - Preliminary Urine,Catheterized H & H 11/09/18 Range/Units 18:42 Hgb 11.0 L (11.4-16.0) gm/dL Hct 34.2 (34.0-46.0) % Coagulation 11/09/18 11/10/18 Range/Units 18:42 07:30 INR 2.9 H 2.6 H (<1.2) Result Diagrams: 11/09/18 18:42 11/09/18 18:42 Assessment and Plan (1) Fall Current Visit: Yes Status: Acute Code(s): W19.XXXA - UNSPECIFIED FALL, INITIAL ENCOUNTER SNOMED Code(s): 5238995 (2) Hip fracture, left Current Visit: Yes Status: Acute Code(s): S72.002A - FRACTURE OF UNSP PART O F NECK OF LEFT FEMUR, INIT SNOMED Code(s): 380745269 (3) Left shoulder pain Current Visit: Yes Status: Acute Code(s): M25.512 - PAIN IN LEFT SHOULDER SNOMED Code(s): 97509124 Plan: 1. X-rays are reviewed revealing a femoral neck fracture of the left femur. X- rays of the left shoulder are pending. 2. Patient's INR is 2.6 today. Coumadin is being held. 3. Patient is to be nonweightbearing to the left lower extremity. 4. NPO after midnight. 5. Planning for left hip hemiarthroplasty on 11/11/2018 pending medical clearance, patient consent and INR results tomorrow.
--- NOTE | 2018-11-10 09:49 | XR ---
Left shoulder HISTORY: Left shoulder pain 3 views of the left shoulder correlated to left humerus 12/15/2017 There is a generator in the left pectoral region. Bone mineralization is reduced. Alignment and joint spaces are maintained. Left lung apex as visualized is normal. There is a distal acromial spur prese nt, and the distal acromion is downturned. Some marginal spurring present at the glenohumeral joint. IMPRESSION: Correlate for impingement. Osteopenia. Mild osteoarthritis.
--- NOTE | 2018-11-10 10:27 | P.CRDCN ---
History of Present Illness History of present illness: This is a pleasant 78-year-old female past medical history significant for hypertension, dyslipidemia, chronic persistent atrial fibrillation, nonischemic cardiomyopathy, status post [employer] BiV ICD, COPD and dementia. She follows with Dr. Del Rosario for cardiology. We have asked to see her in consultation secondary to cardiac evaluation prior to surgery. Per her who is her primary caregiver she typically requires assistance when getting up and moving around the house. However yesterday she got up out of bed on her own and fell to the ground. He heard her fall immediately when the room and she was attempting to stand back up. Per the patient and her there was no loss of consciousness. The fall was not related to any dizziness, chest pain, shortness of breath or palpitations. She has a history of becoming weak and falling at home. She suffered a left femoral neck fracture. Plans for left hip hemiarthroplasty tomorrow. She is seen and examined resting comfortably lying completely flat in bed. She denies any symptoms of chest discomfort, shortness of breath, palpitations or dizziness. She underwent echocardiogram September 2018 revealing preserved LV systolic function with ejection fraction 50-55%, severely dilated left atrium, electronic pacer lead seen in the right ventricular cavity, right atrium appears enlarged, mild mitral regurgitation, mild to moderate tricuspid regurgitation and mild pulmonary hypertension with an RVSP of 48 mmHg. EKG reveals AV dual paced rhythm. Laboratory data reviewed, WBC 10.6, hemoglobin 11, platelets 154, INR 2.6, sodium 140, potassium 4.3, creatinine 1.24 with a GFR 42, magnesium 1.8, cardiac enzymes negative 1. Current cardiac medications include Coumadin, pravastatin 20 mg daily, potassium supplementation 10 MEQ daily, losartan 25 mg daily, Lasix 20 mg daily, carvedilol 3.125 mg twice a day and amiodarone 200 mg daily. She underwent heart catheterization December 2015 showing calcified coronary arteries with no significant stenosis. At the time of my exam: CONSTITUTIONAL: Denies fever. Denies chills. EYES: Denies blurred vision. Denies vision changes. Denies eye pain. EARS, NOSE, MOUTH & THROAT: Denies headache. Denies sore throat. Denies ear pain. CARDIOVASCULAR: Denies chest pain. Denies shortness of breath. Denies orthopnea. Denies PND. Denies palpitations. RESPIRATORY: Denies cough. GASTROINTESTINAL: Denies abdominal pain. Denies diarrhea. Denies constipation. Denies nausea. Denies vomiting. MUSCULOSKELETAL: Denies myalgias. INTEGUMENTARY: Denies pruitis. Denies rash. NEUROLOGIC: Denies numbness. Denies tingling. Denies weakness. PSYCHIATRIC: Denies anxiety. Denies depression. ENDOCRINE: Denies fatigue. Denies weight change. Denies polydipsia. Denies polyurina. GENITOURINARY: Denies burning, hematuria or urgency with micturation. HEMATOLOGIC: Denies history of anemia. Denies bleeding. GENERAL: This is a -year-old [] in no apparent distress at the time of my examination. HEENT: Head is atraumatic, normocephalic. Pupils are equal, round. Sclerae anicteric. Conjunctivae are clear. Mucous membranes of the mouth are moist. Neck is supple. There is no jugular venous distention. No carotid bruit is heard. LUNGS: Clear to auscultation no wheezes, rales or rhonchi. No chest wall tenderness is noted on palpation or with deep breathing. HEART: Regular rate and rhythm without murmurs, rubs or gallops. S1 and S2 heard. ABDOMEN: Soft, nontender. Bowel sounds are heard. No organomegaly noted. EXTREMITIES: No evidence of peripheral edema and no calf tenderness noted. VASCULAR: Radial and dorsalis pedis pulses palpated, no evidence of clubbing. NEUROLOGIC: Patient is awake, alert and oriented x3. ASSESSMENT Acute left femoral neck fracture status post mechanical fall Chronic persistent atrial fibrillation on long-term anticoagulation with Coumadin Nonischemic cardiomyopathy status post ICD, recent EF 50-55%. Echo from 2017 revealed global hypokinesia with EF less than 20%. Hypertension Dyslipidemia Chronic kidney disease COPD Dementia PLAN Pt is seen and examined resting comfortably laying flat in bed in no acute distress. She has no symptoms of angina or fluid overload. INR is 2.6, last dose of coumadin Thursday per the . Overall there are no acute contraindications to surgical intervention however she is high risk due to multiple co-morbid conditions. Coumadin has been held and should be resumed as soon as possible after surgery for thromboembolic protection. Recommend cautious fluid administration intra-operatively and optimal blood pressure control. Coreg can be increased as needed for tachycardia, high possibility post- operatively. Thank you kindly for this consultation. Nurse Practitioner note has been reviewed, I agree with a documented findings and plan of care. Patient was seen and examined. Past Medical History Past Medical History: Atrial Fibrillation, COPD, Dementia, Hypertension History of Any Multi-Drug Resistant Organisms: None Reported Past Surgical History: Section, Pacemaker Additional Past Surgical History / Comment(s): pacer 06/16/2018, thumb join replaced, 3rd pacemaker, cataract surgery Additional Past Anesthesia/Blood Transfusion Reaction / Comment(s): patient had unstable mood after anesthesia in June Type of Cardiac Device: Biventricular Pacemaker Device Placement Date:: 06/16/2018 Past Psychological History: No Psychological Hx Reported Smoking Status: Former smoker Past Alcohol Use History: None Reported Past Drug Use History: None Reported - Past Family History Father History Unknown: Yes Medications and Allergies Home Medications Medication Instructions Recorded Confirmed Type Acetaminophen Tab [Tylenol] 1,000 mg PO Q6H PRN 10/07/13 11/09/18 History Amiodarone [Cordarone] 200 mg PO DAILY 09/06/18 11/09/18 History Carvedilol [Coreg] 3.125 mg PO BID 09/06/18 11/09/18 History Losartan [Cozaar] 25 mg PO DAILY 09/06/18 11/09/18 History Memantine [Namenda] 10 mg PO BID 09/06/18 11/09/18 History Pravastatin Sodium [Pravachol] 20 mg PO HS 09/06/18 11/09/18 History Prune-Lax 2 tab PO DAILY 09/06/18 11/09/18 History Lidocaine 5% Patch [Lidoderm 5% 1 patch TOPICAL DAILY #7 patch 09/09/18 11/09/18 Rx Patch] Furosemide [Lasix] 20 mg PO DAILY 10/08/18 11/09/18 History Potassium Chloride ER [K-Dur 10] 10 meq PO DAILY 10/08/18 11/09/18 History Warfarin [Coumadin] 0.5 mg PO SUMOWEFRSA 11/09/18 11/09/18 History Warfarin [Coumadin] 1 mg PO TUTH 11/09/18 11/09/18 History Allergies Allergy/AdvReac Type Severity Reaction Status Date / Time amiodarone AdvReac Confusion Verified 11/09/18 17:32 Physical Exam Vitals: Vital Signs Temp Pulse Pulse Resp BP BP Pulse Ox 11/10/18 07:47 98.8 F 57 L 16 156/72 94 L 11/10/18 01:10 98.1 F 60 17 111/71 95 11/09/18 22:20 127/65 11/09/18 21:05 175/73 11/09/18 20:59 98.0 F 62 185/72 95 11/09/18 20:16 97.9 F 64 18 161/76 97 11/09/18 16:32 98.2 F 66 16 148/78 97 Intake and Output 11/09/18 11/10/18 11/10/18 22:59 06:59 14:59 Intake Total 400 Output Total 600 Balance -200 Intake: Intake, IV Titration 400 Amount Sodium Chloride 0.9% 1, 400 000 ml @ 100 mls/hr IV . Q10H ONE Rx#:[id number] Output: Urine 600 Other: Voiding Method Indwelling Catheter Indwelling Catheter Weight 38.555 kg Results 11/09/18 18:42 11/09/18 18:42 Cardiac Enzymes 11/09/18 11/09/18 Range/Units 18:42 18:42 AST 26 (14-36) U/L Troponin I <0.012 (0.000-0.034) ng/mL Coagulation 11/09/18 11/10/18 Range/Units 18:42 07:30 PT 27.8 H 25.3 H (9.0-12.0) sec APTT 38.6 H (22.0-30.0) sec CBC 11/09/18 Range/Units 18:42 WBC 10.6 (3.8-10.6) k/uL RBC 3.78 L (3.80-5.40) m/uL Hgb 11.0 L (11.4-16.0) gm/dL Hct 34.2 (34.0-46.0) % Plt Count 154 (150-450) k/uL Comprehensive Metabolic Panel 11/09/18 Range/Units 18:42 Sodium 140 (137-145) mmol/L Potassium 4.3 (3.5-5.1) mmol/L Chloride 106 (98-107) mmol/L Carbon Dioxide 29 (22-30) mmol/L BUN 24 H (7-17) mg/dL Creatinine 1.24 H (0.52-1.04) mg/dL Glucose 77 (74-99) mg/dL Calcium 8.8 (8.4-10.2) mg/dL AST 26 (14-36) U/L ALT 21 (9-52) U/L Alkaline Phosphatase 74 (38-126) U/L Total Protein 5.7 L (6.3-8.2) g/dL Albumin 3.2 L (3.5-5.0) g/dL Current Medications Generic Name Dose Route Start Last Admin Trade Name Freq PRN Reason Stop Dose Admin Acetaminophen 1,000 mg 11/09/18 21:46 11/09/18 22:36 Tylenol Tab PO 1,000 mg Q6H PRN Administration Pain Amiodarone HCl 200 mg 11/10/18 09:00 Cordarone PO DAILY [facility] Carvedilol 3.125 mg 11/09/18 22:00 11/10/18 08:52 Coreg PO Not Given BID-W/MEALS [facility] Furosemide 20 mg 11/10/18 09:00 Lasix PO DAILY [facility] Lidocaine 1 patch 11/10/18 09:00 Lidoderm TOPICAL DAILY [facility] Losartan Potassium 25 mg 11/10/18 09:00 Cozaar PO DAILY [facility] Memantine 10 mg 11/09/18 22:00 11/09/18 22:36 Namenda PO 10 mg BID [facility] Administration Morphine Sulfate 4 mg 11/09/18 20:34 Morphine Sulfate (Inj) IVP Q4HR PRN Pain Multivitamins 1 each 11/10/18 12:00 Theragran PO DAILY@1200 [facility] Potassium Chloride 10 meq 11/10/18 09:00 K-Dur 10 PO DAILY [facility] Pravastatin Sodium 20 mg 11/09/18 22:00 11/09/18 22:36 Pravachol PO 20 mg HS [facility] Administration Intake and Output 11/09/18 11/10/18 11/10/18 22:59 06:59 14:59 Intake Total 400 Output Total 600 Balance -200 Intake: Intake, IV Titration 400 Amount Sodium Chloride 0.9% 1, 400 000 ml @ 100 mls/hr IV . Q10H ONE Rx#:[id number] Output: Urine 600 Other: Voiding Method Indwelling Catheter Indwelling Catheter Weight 38.555 kg 11/09/18 18:42 11/09/18 18:42
[2018-11-10] MEDS: FUROSEMIDE 20 MG TAB PO SCH (11:02)
[2018-11-10] MEDS: LOSARTAN 25 MG TAB PO SCH (11:02)
[2018-11-10] MEDS: MEMANTINE 10 MG TAB PO SCH ×2 (11:02→20:19)
[2018-11-10] MEDS: POTASSIUM CHLORIDE ER 10 MEQ TAB.ER.PRT PO SCH (11:02)
[2018-11-10] MEDS: AMIODARONE 200 MG TAB PO SCH (11:02)
[2018-11-10] MEDS: MULTIVITAMINS, THERA 1 EACH TAB PO SCH (11:03)
[2018-11-10] MEDS: LIDOCAINE 5% PATCH TOPICAL SCH (11:03)
[2018-11-10] MEDS ORDERED: PHYTONADIONE ORAL 5 MG/5 ML ORAL.SYRG PO STA ×2 (11:55→20:03)
[2018-11-10] MEDS: ACETAMINOPHEN TAB 500 MG TAB PO PRN (14:17)
--- NOTE | 2018-11-10 17:33 | PN ---
PROGRESS NOTE DATE OF SERVICE: 11/10/2018 This 78-year-old woman who was admitted with left hip fracture is being closely monitored. The patient is confused. Shoulder x-ray was also done. Cardiology has seen the patient. Patient had history of atrial fibrillation. Currently in normal sinus rhythm. Patient is on taking Coumadin also. The INR was 2.6. No other labs are available at this time today. PAST MEDICAL HISTORY: Reviewed. REVIEW OF SYSTEMS: CARDIOVASCULAR: As mentioned earlier. RESPIRATORY: As mentioned earlier. GI no nausea or vomiting. : No dysuria. CENTRAL NERVOUS SYSTEM: No numbness or weakness. CURRENT MEDICATIONS: Reviewed and include: 1. Tylenol 1000 mg q.6h p.r.n. 2. Cordarone 200 mg p.o. daily. 3. Coreg 3.25 mg b.i.d. 4. Lasix 20 mg daily. 5. Lidoderm 1 patch. 6. Cozaar 25 mg. 7. Namenda 10 mg p.o. daily. 8. Multivitamins. 9. K-Dur 10 mEq p.o. daily. 10.Pravachol 20 mg p.o. q.h.s. PHYSICAL EXAM: GENERAL: Patient is alert and oriented x1. VITAL SIGNS: Pulse 57, blood pressure 156/72, respirations 16, temperature 98.8, pulse ox 94% on room air. HEENT: Conjunctivae normal. NECK: No jugular venous distention. No carotid bruit. No lymph node enlargement. CARDIOVASCULAR system: S1, S2 muffled. RESPIRATORY: Breath sounds diminished in the bases. A few scattered rhonchi and crackles. ABDOMEN: Soft, nontender. LEGS status post left hip fracture. NERVOUS SYSTEM: No focal deficits. LABS: WBC 10.6, hemoglobin 11, INR is 2.6. Creatinine is 1.24. ASSESSMENT: 1. Status post fall and left hip fracture. 2. Gait dysfunction. 3. History of nonischemic cardiomyopathy with previous ejection fraction 20% improved to 50 to 55% after biventricular AICD. 4. Coumadin monitoring. 5. Increased creatinine with possible chronic kidney disease stage III. 6. Anemia, normocytic anemia of chronic disease. 7. History of atrial fibrillation, paroxysmal. 8. History of pacemaker. 9. History of chronic obstructive pulmonary disease. 10.Dementia. 11.Hypertension. 12.History of section. 13.History of biventricular pacemaker. 14.Remote history of nicotine dependence. 15.Remote history of protein calorie malnutrition BMI 14.6. 16.FULL CODE. RECOMMENDATIONS AND DISCUSSION: I recommend to continue current medications, management and symptomatic treatment. Optimize bronchodilators. The patient was also seen by multiple consultants including cardiology. I would recommend vitamin K 5 mg and monitor the PT, INR closely. I recommend continued current medications. We will recommend to hold Coumadin which could be resumed immediately after surgery per Cardiology. Otherwise we will follow the patient closely with you. Once again, the patient is medically stable, cleared for surgery. However, overall prognosis guarded because of multiple complex medical issues as mentioned earlier. MMODL / IJN: [id number] /
[2018-11-10 18:44] LABS: INR 2.2 (<1.2); Prothrombin Time 21.5 sec (9.0-12.0)
[2018-11-10] MEDS: PRAVASTATIN SODIUM 20 MG TAB PO SCH (20:19)
[2018-11-11 07:57] LABS: INR 1.1 (<1.2); Prothrombin Time 11.8 sec (9.0-12.0)
[2018-11-11] MEDS: LIDOCAINE 5% PATCH TOPICAL SCH (07:58)
[2018-11-11 08:03] LABS: Anisocytosis Slight; Basophils % (A) 0 %; Eosinophils # (A) 0.1 k/uL (0-0.7); Eosinophils % (A) 1 %; HCT 33.9 % (34.0-46.0); HGB 10.3 gm/dL (11.4-16.0); Hypochromasia Slight; Lymphocytes # (A) 2.2 k/uL (1.0-4.8); Lymphocytes % (A) 22 %; MCH 28.7 pg (25.0-35.0); MCHC 30.5 g/dL (31.0-37.0); Mean Platelet Volume 8.2; Monocytes # (A) 0.6 k/uL (0-1.0); Monocytes % (A) 6 %; Neutrophils # (A) 6.6 k/uL (1.3-7.7); Neutrophils % (A) 67 %; Platelet Count 145 k/uL (150-450); RBC 3.61 m/uL (3.80-5.40); RDW 17.6 % (11.5-15.5); WBC 9.9 k/uL (3.8-10.6)
[2018-11-11 08:08] LABS: Calcium 8.5 mg/dL (8.4-10.2); Potassium 4.2 mmol/L (3.5-5.1)
--- NOTE | 2018-11-11 08:10 | XR ---
EXAMINATION TYPE: XR chest 1V portable DATE OF EXAM: 11/11/2018 COMPARISON: 09/06/2018 INDICATION: CHF TECHNIQUE: Single frontal view of the chest is obtained. FINDINGS: The heart size is normal. The pulmonary vasculature is normal. Minimal thickening along the lateral left costophrenic angle remains present. This appears stable. Pa cemaker overlies left chest. IMPRESSION: 1. No acute interval change.
[2018-11-11] MEDS: FUROSEMIDE 20 MG TAB PO SCH (08:22)
[2018-11-11] MEDS: MULTIVITAMINS, THERA 1 EACH TAB PO SCH (08:22)
[2018-11-11] MEDS: LOSARTAN 25 MG TAB PO SCH (08:22)
[2018-11-11] MEDS: POTASSIUM CHLORIDE ER 10 MEQ TAB.ER.PRT PO SCH (08:22)
[2018-11-11] MEDS: CARVEDILOL 3.125 MG TAB PO SCH ×2 (08:22→16:44)
[2018-11-11] MEDS: AMIODARONE 200 MG TAB PO SCH (08:23)
[2018-11-11] MEDS: MEMANTINE 10 MG TAB PO SCH ×2 (08:23→20:28)
[2018-11-11] MEDS ORDERED: ONDANSETRON 4 MG/2 ML VIAL IVP PRN (11:11)
[2018-11-11] MEDS ORDERED: HYDROmorphone 0.5 MG/0.5 ML SYRINGE IVP PRN ×3 (11:11)
[2018-11-11] MEDS ORDERED: HYDROcodone/APAP 5-325MG 1 EACH TAB PO PRN ×2 (11:11)
[2018-11-11] MEDS ORDERED: MAGNESIUM HYDROXIDE 2,400 MG/10 ML CUP PO PRN (11:11)
[2018-11-11] MEDS ORDERED: NALOXONE 0.4 MG/ML 1 ML VIAL IV PRN (11:11)
[2018-11-11] MEDS ORDERED: LIDOCAINE 1% 20 ML VIAL (10MG/ML) FOR IV START INTRADERMA ONE (11:48)
[2018-11-11] MEDS ORDERED: LACTATED RINGERS 1,000 ML IV ONE ×2 (11:48→13:10)
[2018-11-11] MEDS ORDERED: ePHEDrine SULFATE/0.9% NACL/PF 50 MG/5 ML SYRINGE IV ONE (12:06)
[2018-11-11] MEDS ORDERED: MIDAZOLAM 2 MG/2 ML VIAL ONE (12:06)
[2018-11-11] MEDS ORDERED: KETAMINE 10 MG/ML 20 ML VIAL ONE (12:06)
[2018-11-11] MEDS: SODIUM CHLORIDE 0.9% 1,000 ML IV SCH (12:19)
[2018-11-11] MEDS ORDERED: SODIUM CHLORIDE 0.9% 50 ML with ceFAZolin 1,000 MG IV ONE ×2 (12:46)
--- NOTE | 2018-11-11 13:04 | P.OP ---
Date of Procedure: 11/11/18 Preoperative Diagnosis: Subcapital fracture left hip Postoperative Diagnosis: Subcapital fracture left hip Procedure(s) Performed: Left hip hemiarthroplasty Implants: Colbert and nephew Polarstem size 0 standard Colbert [employer] Nephew tandem unipolar,421 mm Colbert [employer] Nephew tandem unipolar 12/14 taper sleeve, +4 mm All components were press-fit. Anesthesia: spinal Surgeon: Fred Arellano Student Dean #1: Ani Myers Estimated Blood Loss (ml): 50 Pathology: other (femoral head) Condition: stable Disposition: PACU Indications for Procedure: this is a 78-year-old female who sustained a fall at home earlier this week. She was unable to ambulate and an x-ray demonstrated a subcapital fracture of her left hip. After discussing the surgical nonsurgical treatment options with her family at length, I recommended a left hip hemiarthroplasty and informed consent was obtained. Operative Findings: The operative findings are consistent with subcapital fracture of the left hip. Description of Procedure: Patient was seen and evaluated in the preoperative area, consent was reviewed and the operative site was marked with a skin marker. Patient was then brought to the operating room and given 2 g of Ancef intravenously. A spinal anesthetic was administered by the anesthesia department. Patient was then placed in a lateral decubitus position and held with a Montral hip positioner. The bony prominences were well-padded and an axillary roll was placed. The hip was then prepped and draped in the usual sterile fashion. A universal timeout was then performed which confirmed the patient's name, surgical site, ALLERGIES, and procedure. A standard anterolateral approach the hip was performed. Skin and subcutaneous tissues were sharply incised with an incision centered over the tip of the greater trochanter. The incision was carefully dissected down to the fascia. The fascia was then split in line with skin incision and a Charnley retractor was gently placed. The abductors were then identified, and the anterior one third of the abductors were released off the trochanter and one large sleeve. The fracture hematoma was evacuated and the proximal femur was exposed by externally rotating the femur. The fracture site was readily visualized. Next, using an osteotomy guide, the proximal femur was osteotomized at the appropriate level of the above the lesser trochanter. This bone was then removed. Attention was then turned to the femoral head. Using a corkscrew, the femoral head was removed from the acetabulum without incident. The acetabulum was inspected, and found to have no significant arthrosis. Femoral head was then measured. Attention was then redirected to the femur. Proximal femur was re-exposed and a box osteotome was used to lateralize the proximal femur. A stapler hand was then used to locate the femoral canal. Sequential broaching was then performed to the appropriate size. The calcar was then planed and trial head and neck were placed. The hip was then gently reduced. Leg lengths were checked and found to be equal. Hip was then taken through a full range of motion was stable throughout. The hip was then gently dislocated with the aid of a bone hook. The trial head and neck were then removed. The femoral broach was then inspected and found to have a secure fit. The broach was then removed. The hip was then copiously irrigated with antibiotic solution with a pulse lavage. Components were then opened and the femoral stem was then impacted into the proximal femur. The trunnion was cleaned and dried, and the femoral head and neck were then impacted. Hip was again gently reduced. Again leg lengths were checked and found to be equal, and the hip was taken through a full range of motion and found to be stable. The hip was again irrigated with pulsatile lavage, then followed by the Irrrisept solution. The abductors were then repaired through drill holes to the bone to the greater trochanter, utilizing #5 Ethibond suture. Next the fascia was repaired with #2 strata fix suture. The subcutaneous tissue was then repaired with 3-0 Vicryl. The subcuticular tissue was then repaired with 3-0 strata fix suture. Skin was then closed with Dermabond tape. A sterile dressing was then applied and the patient was transported to the recovery room in stable condition. Student Dean JUANITA Figueroa was required due to the complexity of surgery the need for skilled director medical surgical. She assisted with positioning the patient, draping the patient, retraction during the surgery, and closure of the wound.
--- NOTE | 2018-11-11 13:56 | XR ---
EXAMINATION TYPE: XR Hip Limited LT DATE OF EXAM: 11/11/2018 CLINICAL HISTORY: Left hip pain and osteoarthritis. TECHNIQUE: Single AP portable view of left hip is obtained immediately postoperatively. COMPARISON: None. FINDINGS: Metallic hardware from left hip arthroplasty is seen and appears satisfactory in alignment and position. There is evidence of recent surgery with subcutaneous gas and soft tissue swelling not ed laterally. IMPRESSION: Metallic hardware from left hip arthroplasty is satisfactory in position.
[2018-11-11] MEDS: LACTATED RINGERS 1,000 ML IV SCH (14:21)
--- NOTE | 2018-11-11 14:27 | PN ---
PROGRESS NOTE DATE OF SERVICE: 11/11/2018 This 78-year-old woman was admitted with left hip fracture, is slated for surgery today. The Coumadin has been reversed at this time. The patient continues to be confused. A chest x-ray done today this morning showed no acute changes. No chest pain. No palpitation. PHYSICAL EXAM: Alert and oriented x1. Pulse 60, blood pressure 167/77, respiration 16, temperature 98.6, pulse ox 98% on room air. HEENT: Conjunctivae normal, oral mucosa moist. NECK: No jugular venous distention. No lymph node enlargement. CARDIOVASCULAR SYSTEM: S1, S2, muffled. RESPIRATION: Breath sounds diminished at the bases, a few scattered rhonchi, no crackles. ABDOMEN: Soft, nontender. No mass. LEGS: Status post left hip fracture. NERVOUS SYSTEM: No focal deficts. LABS: INR is 1.1. Sodium 141, potassium 4.2. ASSESSMENT: 1. Status post fall and left hip fracture. 2. Gait dysfunction. 3. Coumadin monitoring. 4. History of nonischemic cardiomyopathy with previous ejection fraction 20% improved to 50% to 55% after biventricular AICD. 5. Increased creatinine with possibly chronic kidney disease stage III. 6. Anemia, normocytic anemia of chronic disease. 7. History of atrial fibrillation, paroxysmal. 8. History of pacemaker. 9. History of chronic obstructive pulmonary disease. 10.Dementia. 11.Hypertension. 12.History of section. 13.History of biventricular pacemaker. 14.Remote history of nicotine dependence. 15.History of protein calorie malnutrition, body mass index of 14.6. 16.FULL CODE. RECOMMENDATION: Recommend to continue current management and symptomatic treatment. At this time, I recommend resume the Coumadin per protocol after orthopedic surgery with careful monitoring of daily PT, INR. Otherwise PT, OT evaluation, possible ECF rehab. Discussed with the family and the rest of the recommendations per Orthopedic Surgery. Further recommendations to follow. MMODL / IJN: [id number] /
[2018-11-11] MEDS: ceFAZolin IN SWFI 2 GM/20 ML SYRINGE IVP SCH (15:32)
[2018-11-11] MEDS: ACETAMINOPHEN TAB 500 MG TAB PO PRN ×2 (16:45→22:26)
[2018-11-11] MEDS ORDERED: WARFARIN 2 MG TAB PO ONE (18:00)
[2018-11-11] MEDS: SENNOSIDES-DOCUSATE SODIUM 1 EACH TAB PO SCH (20:28)
[2018-11-11] MEDS: PRAVASTATIN SODIUM 20 MG TAB PO SCH (20:28)
[2018-11-12] MEDS: ceFAZolin IN SWFI 2 GM/20 ML SYRINGE IVP SCH (00:21)
[2018-11-12] MEDS: SODIUM CHLORIDE 0.9% 1,000 ML IV SCH ×2 (02:43→20:28)
[2018-11-12 07:03] LABS: Anisocytosis Slight; Basophils % (A) 0 %; Eosinophils # (A) 0.1 k/uL (0-0.7); Eosinophils % (A) 1 %; HCT 27.1 % (34.0-46.0); Lymphocytes # (A) 1.4 k/uL (1.0-4.8); Lymphocytes % (A) 11 %; MCH 29.6 pg (25.0-35.0); MCHC 32.3 g/dL (31.0-37.0); MCV 91.7 fL (80.0-100.0); Mean Platelet Volume 8.3; Monocytes # (A) 0.9 k/uL (0-1.0); Monocytes % (A) 7 %; Neutrophils # (A) 10.5 k/uL (1.3-7.7); Neutrophils % (A) 79 %; Platelet Count 112 k/uL (150-450); RBC 2.96 m/uL (3.80-5.40); RDW 17.9 % (11.5-15.5); WBC 13.3 k/uL (3.8-10.6)
[2018-11-12 07:13] LABS: HGB 8.8 gm/dL (11.4-16.0)
[2018-11-12 07:14] LABS: INR 1.1 (<1.2); Prothrombin Time 11.3 sec (9.0-12.0)
--- NOTE | 2018-11-12 08:17 | P.PN ---
Subjective Progress Note Date: 11/12/18 This is a 78-year-old female who is status post left hip hemiarthroplasty. This is postoperative day #1. Patient is seen and evaluated at bedside. Patient does admit to some soreness in the left hip. Per nursing, the patient was agitated last night and now has a sitter. Objective - Vital Signs Vital signs: Vital Signs Temp 98 F 11/12/18 07:46 Pulse 66 11/12/18 07:46 Resp 16 11/12/18 07:46 BP 126/66 11/12/18 07:46 Pulse Ox 94 L 11/12/18 07:46 Intake & Output 11/11/18 11/12/18 11/12/18 18:59 06:59 18:59 Intake Total 1650 520 Output Total 2600 650 Balance -950 -130 Intake: IV 1650 Intake, IV Titration 520 Amount Sodium Chloride 0.9% 1, 520 000 ml @ 65 mls/hr IV . [id number] [facility] Rx#:[id number] Output: Urine 2550 650 Uretheral (Oh) 850 Estimated Blood Loss 50 Other: Voiding Method Indwelling Catheter Indwelling Catheter # Voids 3 - Exam Vital signs are stable. Patient is in no acute distress and is alert. Abductor pillow is in place. Calf is soft and nontender to palpation. Dressing is clean, dry, and intact. Patient has full foot and ankle motion without pain or difficulty. Neurovascular status and circulatory status are intact. - Labs CBC & Chem 7: 11/12/18 06:47 11/11/18 06:59 Labs: Abnormal Lab Results - Last 24 Hours (Table) 11/12/18 Range/Units 06:47 WBC 13.3 H (3.8-10.6) k/uL RBC 2.96 L (3.80-5.40) m/uL Hgb 8.8 L D (11.4-16.0) gm/dL Hct 27.1 L (34.0-46.0) % RDW 17.9 H (11.5-15.5) % Plt Count 112 L (150-450) k/uL Neutrophils # 10.5 H (1.3-7.7) k/uL Assessment and Plan (1) Fall Current Visit: Yes Status: Acute Code(s): W19.XXXA - UNSPECIFIED FALL, INITIAL ENCOUNTER SNOMED Code(s): 9316719 (2) Hip fracture, left Current Visit: Yes Status: Acute Code(s): S72.002A - FRACTURE OF UNSP PART OF NECK OF LEFT FEMUR, INIT SNOMED Code(s): 865277127 (3) Left shoulder pain Current Visit: Yes Status: Acute Code(s): M25.512 - PAIN IN LEFT SHOULDER SNOMED Code(s): 61987596 Plan: Continue routine postop care and pain control. Continue hip precautions with abductor pillow for 6 weeks. Continue anticoagulation with Coumadin. Weightbearing as tolerated with a walker. Leave dressing in place for 10 days. Appreciate input from medicine. Likely discharge to rehab in the next 24-48 hours.
[2018-11-12] MEDS: AMIODARONE 200 MG TAB PO SCH (09:05)
[2018-11-12] MEDS: FUROSEMIDE 20 MG TAB PO SCH (09:05)
[2018-11-12] MEDS: LIDOCAINE 5% PATCH TOPICAL SCH (09:06)
[2018-11-12] MEDS: CARVEDILOL 3.125 MG TAB PO SCH ×2 (09:06→17:17)
[2018-11-12] MEDS: MULTIVITAMINS, THERA 1 EACH TAB PO SCH (09:06)
[2018-11-12] MEDS: LOSARTAN 25 MG TAB PO SCH (09:06)
[2018-11-12] MEDS: POTASSIUM CHLORIDE ER 10 MEQ TAB.ER.PRT PO SCH (09:06)
[2018-11-12] MEDS: MEMANTINE 10 MG TAB PO SCH ×2 (09:06→20:28)
[2018-11-12] MEDS: LACTATED RINGERS 1,000 ML IV SCH (14:30)
[2018-11-12] MEDS ORDERED: WARFARIN 2 MG TAB PO ONE (18:00)
--- NOTE | 2018-11-12 19:44 | PN ---
PROGRESS NOTE DATE OF SERVICE: 11/12/2018 This 78-year-old woman was admitted with left hip fracture underwent left hip hemiarthroplasty by Dr. Arellano. The patient is being closely monitored. The patient is conscious, complaining of some pain, but much better than the baseline. No chest pain. No palpitations. No fever. EXAM: The patient is confused. Blood pressure 126/60, respirations 16, temperature is 98, pulse ox 94% on room air. HEENT: Conjunctivae normal. Oral mucosa moist. NECK is no jugular venous distention. No carotid bruit. No lymph node enlargement. CARDIOVASCULAR system: S1, S2 muffled. No S3, no S4. RESPIRATORY: Breath sounds diminished in the bases. No rhonchi. No crackles. ABDOMEN: Soft. Status post left hip surgery. NERVOUS SYSTEM: No focal deficits. LABS: WBC 13.2, hemoglobin 8.8, INR is 1.1. ASSESSMENT: 1. Fall and left hip fracture status post left hip hemiarthroplasty. 2. Gait dysfunction. 3. Coumadin monitoring. 4. History of nonischemic cardiomyopathy with previous ejection fraction 20%, improved to 50 to 55% after biventricular AICD. 5. Increased creatinine with possible chronic kidney disease stage III. 6. Anemia, normocytic anemia of chronic disease. 7. History of atrial flutter fibrillation paroxysmal. 8. History of pacemaker. 9. History of chronic obstructive pulmonary disease. 10.Dementia. 11.Hypertension. 12.History of section. 13.History of biventricular pacemaker. 14.Remote history of nicotine dependence. 15.History of protein calorie malnutrition. Body mass index 14.2. 16.Full CODE. RECOMMENDATIONS AND DISCUSSION: Recommend to continue current medication, continue to monitor. Symptomatic treatment. Otherwise, at this time, I recommend repeat labs. Coumadin monitoring. Will closely follow. Further recommendations to follow. MMODL / IJN: [id number] /
[2018-11-12] MEDS: SENNOSIDES-DOCUSATE SODIUM 1 EACH TAB PO SCH (20:28)
[2018-11-12] MEDS: ACETAMINOPHEN TAB 500 MG TAB PO PRN (20:28)
[2018-11-12] MEDS: PRAVASTATIN SODIUM 20 MG TAB PO SCH (20:28)
[2018-11-13 07:07] LABS: Prothrombin Time 10.8 sec (9.0-12.0)
[2018-11-13 07:37] LABS: Anisocytosis Slight; HCT 26.5 % (34.0-46.0); HGB 8.4 gm/dL (11.4-16.0); MCH 29.7 pg (25.0-35.0); MCHC 31.6 g/dL (31.0-37.0); MCV 93.8 fL (80.0-100.0); Mean Platelet Volume 8.1; Platelet Count 129 k/uL (150-450); RBC 2.83 m/uL (3.80-5.40); RDW 17.7 % (11.5-15.5); WBC 13.9 k/uL (3.8-10.6)
[2018-11-13] MEDS: POTASSIUM CHLORIDE ER 10 MEQ TAB.ER.PRT PO SCH (08:12)
[2018-11-13] MEDS: MULTIVITAMINS, THERA 1 EACH TAB PO SCH (08:13)
[2018-11-13] MEDS: CARVEDILOL 3.125 MG TAB PO SCH ×2 (08:13→16:42)
[2018-11-13] MEDS: ACETAMINOPHEN TAB 500 MG TAB PO PRN (08:13)
[2018-11-13] MEDS: AMIODARONE 200 MG TAB PO SCH (08:13)
[2018-11-13] MEDS: FUROSEMIDE 20 MG TAB PO SCH (08:13)
[2018-11-13] MEDS: MEMANTINE 10 MG TAB PO SCH ×2 (08:14→21:58)
[2018-11-13] MEDS: LIDOCAINE 5% PATCH TOPICAL SCH (10:49)
[2018-11-13] MEDS: SODIUM CHLORIDE 0.9% 1,000 ML IV SCH (10:49)
[2018-11-13] MEDS: LOSARTAN 25 MG TAB PO SCH (11:10)
[2018-11-13 12:00] LABS: Lymphocytes # (M) 1.25 k/uL (1.0-4.8); Monocytes # (M) 1.53 k/uL (0-1.0); Neutrophils # (M) 11.12 k/uL (1.3-7.7); Neutrophils % (M) 80 %; Nucleated Red Blood Cells 0 /100 WBC (0-0); Total Cells Counted 100
--- NOTE | 2018-11-13 12:00 | P.PN ---
Subjective Progress Note Date: 11/13/18 Principal diagnosis: S/P left hip hemiarthroplasty Patient is seen at bedside this morning. She is postop day #2 from left hip hemiarthroplasty for hip fracture. She has minimal pain at the surgical site. She denies any new complaints. She denies numbness, tingling or calf pain. Review of systems is negative for fever, chills, chest pain, shortness of breath or other Objective - Vital Signs Vital signs: Vital Signs Temp 98.3 F 11/13/18 07:36 Pulse 63 11/13/18 07:36 Resp 16 11/13/18 07:36 BP 95/58 11/13/18 07:36 Pulse Ox 99 11/13/18 07:36 Intake & Output 11/12/18 11/13/18 11/13/18 18:59 06:59 18:59 Intake Total 720 Output Total 450 500 Balance 270 -500 Weight 38.555 kg Intake: Oral 720 Output: Urine 450 500 Other: Voiding Method Indwelling Catheter Indwelling Catheter Indwelling Catheter # Bowel Movements 1 - Exam Inspection reveals a benign surgical wound. There is no active bleeding or drainage. Neurovascular status is intact throughout the lower extremity with motor and sensation fully intact. Calf is soft and nontender. 2+ dorsalis pedis pulse and less than 2 second cap refill is present. - Constitutional General appearance: Present: no acute distress - Labs CBC & Chem 7: 11/13/18 06:16 11/11/18 06:59 Labs: Abnormal Lab Results - Last 24 Hours (Table) 11/13/18 Range/Units 06:16 WBC 13.9 H (3.8-10.6) k/uL RBC 2.83 L (3.80-5.40) m/uL Hgb 8.4 L (11.4-16.0) gm/dL Hct 26.5 L (34.0-46.0) % RDW 17.7 H (11.5-15.5) % Plt Count 129 L (150-450) k/uL Assessment and Plan (1) Hip fracture, left Narrative/Plan: She will continue with routine postop orthopedic protocol including pain management, wound care, PT, DVT prophylaxis and medical management. Expect that she will transfer to [facility] Thursday Current Visit: Yes Status: Acute Priority: Medium Code(s): S72.002A - FRACTURE OF UNSP PART OF NECK OF LEFT FEMUR, INIT SNOMED Code(s): 076496246 Time with Patient: Less than 30
[2018-11-13] MEDS: DOCUSATE 100 MG CAP PO SCH ×2 (12:13→21:58)
--- NOTE | 2018-11-13 14:23 | XR ---
EXAMINATION TYPE: XR abdomen 1V , 2 VIEWS DATE OF EXAM ORDERED: 11/13/2018 HISTORY: abdominal distention. COMPARISON: None. FINDINGS: There is a left hip hemiarthroplasty in place. There are mildly distended loops of both small and large bowel throughout the abdomen. There is no ev idence of free air. No unusual calcifications are seen. IMPRESSION: NONSPECIFIC ABDOMEN. FOLLOW-UP CLINICALLY INDICATED WOULD BE SUGGESTED.
[2018-11-13] MEDS ORDERED: WARFARIN 2 MG TAB PO ONE (18:00)
[2018-11-13] MEDS ORDERED: WARFARIN 3 MG TAB PO ONE (18:00)
--- NOTE | 2018-11-13 21:20 | PN ---
PROGRESS NOTE DATE OF SERVICE: 11/13/2018. This 78-year-old woman who was admitted with a fall and left hip fracture had a left hip hemiarthroplasty. No chest pain. No palpitations. No fever. The patient complains of abdominal discomfort and distention, showed also had constipation. Plain film of the abdomen showed mildly distended loops of the intestines. Patient closely monitored. ECF rehab is being planned. Orthopedics is following the patient closely. The patient continues to be confused. PAST MEDICAL HISTORY: Reviewed. REVIEW OF SYSTEMS: Could not be taken the patient. The patient is confused as baseline. CURRENT MEDICATIONS: Reviewed and include: 1. Tylenol 1000 mg q.6h p.r.n. 2. Emerson 5 mg q.h.s. 3. Cordarone 200 mg daily. 4. Coreg 3.125 mg p.o. b.i.d. 5. Colace 100 mg p.o. b.i.d. 6. Lasix 20 mg b.i.d. 7. Dilaudid 0.125 mg q.3 p.r.n. 8. Lidoderm patch topically daily. 9. Cozaar 25 mg daily. 10.Milk of magnesia. 11.Namenda 10 mg p.o. b.i.d. 12.Morphine 4 mg q.4 p.r.n. 13.Multivitamins 1 p.o. daily. 14.Narcan. 15.Zofran. 16.K-Dur 10 mg p.o. daily. 17.Pravachol 20 mg q.h.s. 18.Senokot-S 2 q.h.s. 19.Coumadin 2 mg p.o. once. PHYSICAL EXAMINATION: Patient is alert and oriented x3. Pulse 68, blood pressure 83/40, respiration 20, temperature 97.4, pulse ox 98% on room air. HEENT: Conjunctivae normal. Oral mucosa moist. Neck is no jugular venous distention. No carotid bruit. No lymph node enlargement. CARDIOVASCULAR: S1, S2. RESPIRATORY: Breath sounds diminished in the bases. A few scattered rhonchi, no crackles. ABDOMEN: Soft, nontender. LEGS: No edema. NERVOUS SYSTEM: No focal deficits. LABS: At this time shows WBC 13.2, hemoglobin is 8.4. ASSESSMENT: 1. Fall and left hip fracture status post left hemiarthroplasty. 2. Gait dysfunction. 3. Coumadin monitoring. 4. Relative hypotension. 5. History of nonischemic cardiomyopathy with previous ejection 20% improved to 50 to 55% after biventricular AICD. 6. Mild abdominal distention, possible constipation. 7. Increased creatinine with possible chronic kidney stage III. 8. Anemia, normocytic anemia of chronic disease. 9. History of atrial flutter fibrillation, paroxysmal. 10.History of pacemaker. 11.History of chronic obstructive pulmonary disease. 12.History of dementia. 13.Hypertension. 14.History of section. 15.History of biventricular pacemaker. 16.Remote history of nicotine dependence. 17.History of protein calorie malnutrition, body mass index 14.2, severe. 18.FULL CODE. RECOMMENDATIONS AND DISCUSSION: I recommend to continue current medications, continue management and symptomatic treatment. Otherwise at this time I recommend continue the PT OT evaluation and possible ECF rehab. I would also recommend suppository and add Colace to the current regimen. Closely monitor. Avoid narcotics as much as possible. Otherwise, I would also recommend hold the antihypertensive medications if systolic less than 100. Further recommendations to follow. See orders for further details. Coumadin dosing will be continued. Today's INR is 1. I would recommend Coumadin 5 mg p.o. today. MMODL / IJN: [id number] /
[2018-11-13] MEDS: PRAVASTATIN SODIUM 20 MG TAB PO SCH (21:57)
[2018-11-13] MEDS: SENNOSIDES-DOCUSATE SODIUM 1 EACH TAB PO SCH (21:58)
[2018-11-14 07:27] LABS: Anisocytosis Slight; HCT 25.1 % (34.0-46.0); HGB 8.5 gm/dL (11.4-16.0); MCH 31.2 pg (25.0-35.0); MCHC 33.6 g/dL (31.0-37.0); MCV 92.8 fL (80.0-100.0); Mean Platelet Volume 8.1; Platelet Count 168 k/uL (150-450); RBC 2.71 m/uL (3.80-5.40); RDW 17.4 % (11.5-15.5)
[2018-11-14 07:31] LABS: INR 1.2 (<1.2); Prothrombin Time 12.1 sec (9.0-12.0)
[2018-11-14] MEDS: LOSARTAN 25 MG TAB PO SCH (08:39)
[2018-11-14] MEDS: AMIODARONE 200 MG TAB PO SCH (08:39)
[2018-11-14] MEDS: MEMANTINE 10 MG TAB PO SCH ×2 (08:39→20:07)
[2018-11-14] MEDS: CARVEDILOL 3.125 MG TAB PO SCH ×2 (08:40→18:12)
[2018-11-14] MEDS: POTASSIUM CHLORIDE ER 10 MEQ TAB.ER.PRT PO SCH (08:40)
[2018-11-14] MEDS: DOCUSATE 100 MG CAP PO SCH ×2 (08:40→20:07)
[2018-11-14] MEDS: LIDOCAINE 5% PATCH TOPICAL SCH (08:40)
[2018-11-14] MEDS: MULTIVITAMINS, THERA 1 EACH TAB PO SCH (08:40)
[2018-11-14] MEDS: FUROSEMIDE 20 MG TAB PO SCH (08:40)
--- NOTE | 2018-11-14 11:55 | P.PN ---
Subjective Progress Note Date: 11/14/18 Principal diagnosis: S/P left hip hemiarthroplasty Patient is seen at bedside this morning. She is postop day #3 from left hip hemiarthroplasty for hip fracture. She has minimal pain at the surgical site. She denies any new complaints. She denies numbness, tingling or calf pain. Review of systems is negative for fever, chills, chest pain, shortness of breath or other Objective - Vital Signs Vital signs: Vital Signs Temp 99.0 F 11/14/18 07:33 Pulse 67 11/14/18 07:33 Resp 16 11/14/18 07:33 BP 152/88 11/14/18 07:33 Pulse Ox 96 11/14/18 07:33 Intake & Output 11/13/18 11/14/18 11/14/18 18:59 06:59 18:59 Intake Total 300 120 Output Total 200 900 Balance 100 -900 120 Intake: Oral 300 120 Output: Urine 200 900 Other: Voiding Method Indwelling Catheter Indwelling Catheter Indwelling Catheter - Exam Inspection reveals a benign surgical wound. There is no active bleeding or drainage. Neurovascular status is intact throughout the lower extremity with motor and sensation fully intact. Calf is soft and nontender. 2+ dorsalis pedis pulse and less than 2 second cap refill is present. - Constitutional General appearance: Present: no acute distress - Labs CBC & Chem 7: 11/14/18 07:04 11/11/18 06:59 Labs: Abnormal Lab Results - Last 24 Hours (Table) 11/13/18 11/14/18 11/14/18 Range/Units 06:16 07:04 07:04 WBC 12.0 H (3.8-10.6) k/uL RBC 2.71 L (3.80-5.40) m/uL Hgb 8.5 L (11.4-16.0) gm/dL Hct 25.1 L (34.0-46.0) % RDW 17.4 H (11.5-15.5) % Neutrophils # (Manual) 11.12 H (1.3-7.7) k/uL Monocytes # (Manual) 1.53 H (0-1.0) k/uL PT 12.1 H (9.0-12.0) sec INR 1.2 H (<1.2) Assessment and Plan (1) Hip fracture, left Narrative/Plan: She will continue with routine postop orthopedic protocol including pain management, wound care, PT, DVT prophylaxis and medical management. Expect that she will transfer to [facility] Thursday Current Visit: Yes Status: Acute Priority: Medium Code(s): S72.002A - FRACTURE OF UNSP PART OF NECK OF LEFT FEMUR, INIT SNOMED Code(s): 980377355 Time with Patient: Less than 30
[2018-11-14] MEDS ORDERED: WARFARIN 3 MG TAB PO ONE (18:00)
[2018-11-14] MEDS: ACETAMINOPHEN TAB 500 MG TAB PO PRN (18:11)
[2018-11-14] MEDS: SENNOSIDES-DOCUSATE SODIUM 1 EACH TAB PO SCH (20:07)
[2018-11-14] MEDS: PRAVASTATIN SODIUM 20 MG TAB PO SCH (20:07)
--- NOTE | 2018-11-14 21:09 | PN ---
PROGRESS NOTE DATE OF SERVICE: 11/14/2018 This 74-year-old woman was admitted with left hip fracture is improving significantly. No chest pain. No palpitations. Patient continues to be confused. The PT, OT evaluated the patient and recommending outpatient ECF rehab. EXAM: The pulse is 67, blood pressure 120/80, respiration 16, temperature 99 degrees, pulse ox 98% on room air. HEENT: Conjunctivae normal. NECK: No jugular venous distention. CARDIOVASCULAR SYSTEM: S1, S2 muffled. RESPIRATORY SYSTEM: Breath sounds diminished at the bases. A few scattered rhonchi. ABDOMEN: Soft, nontender. LEGS: Exam of the legs status post surgery. NERVOUS SYSTEM: No focal deficits. LAB STUDIES: WBC 12, hemoglobin is 8.5. ASSESSMENT: 1. Fall and left hip fracture status post left hip hemiarthroplasty. 2. Gait dysfunction. 3. Coumadin monitor. 4. Relative hypotension. 5. History of nonischemic cardiomyopathy with previous ejection fraction 20% improved to 50 to 55% after biventricular AICD. 6. Mild abdominal distention possible constipation. 7. Increased creatinine with possible chronic kidney stage III. 8. Anemia, normocytic anemia of chronic disease. 9. History of atrial flutter fibrillation paroxysmal. 10.History of pacemaker. 11.History of chronic obstructive pulmonary disease. 12.History of dementia. 13.Hypertension. 14. section. 15.History of biventricular pacemaker. 16.Remote history of nicotine dependence. 17.History of protein calorie malnutrition, body mass index 40.2, severe. 18.FULL CODE. RECOMMENDATIONS AND DISCUSSION: I recommend to continue current medications, continue to monitoring and symptomatic treatment. Otherwise at this time I recommend PT OT evaluation, possible ECF rehab. Further recommendations to follow. MMODL / IJN: [id number] /
[2018-11-15 08:06] LABS: Anisocytosis Slight; Basophils % (A) 0 %; Eosinophils # (A) 0.1 k/uL (0-0.7); Eosinophils % (A) 1 %; HCT 26.6 % (34.0-46.0); HGB 8.6 gm/dL (11.4-16.0); Hypochromasia Slight; Lymphocytes # (A) 1.8 k/uL (1.0-4.8); Lymphocytes % (A) 16 %; MCH 30.7 pg (25.0-35.0); MCHC 32.3 g/dL (31.0-37.0); MCV 94.9 fL (80.0-100.0); Mean Platelet Volume 8.2; Monocytes # (A) 0.9 k/uL (0-1.0); Monocytes % (A) 9 %; Neutrophils # (A) 7.6 k/uL (1.3-7.7); Neutrophils % (A) 70 %; Platelet Count 216 k/uL (150-450); RBC 2.81 m/uL (3.80-5.40); RDW 16.8 % (11.5-15.5); WBC 10.9 k/uL (3.8-10.6)
[2018-11-15 08:10] VITALS: PULSE 66; RESP 15; TEMP 98.5
--- NOTE | 2018-11-15 08:10 | XR ---
EXAMINATION TYPE: XR chest 1V DATE OF EXAM: 11/15/2018 COMPARISON: 11/11/2018 HISTORY: 78-year-old female with fever TECHNIQUE: Single frontal view of the chest is obtained. FINDINGS: 3-lead left anterior chest wall AICD generator redemonstrated. Heart remains borderline in size. Hype r inflation with relative lung lucencies. Continued small left pleural effusion with patchy left basi lar opacity. IMPRESSION: COPD. There is a small left pleural effusion with adjacent patchy atelectasis and/or infiltrate.
[2018-11-15 08:13] LABS: INR 1.4 (<1.2); Prothrombin Time 14.5 sec (9.0-12.0)
[2018-11-15 08:23] LABS: Appearance,Urine Clear (Clear); Bilirubin,Urine Negative (Negative); Blood,Urine Negative (Negative); Color,Urine Light Yellow; Glucose,Urine (UA) Negative (Negative); Ketones,Urine Negative (Negative); Leukocyte Esterase,Urine Negative (Negative); Nitrite,Urine Negative (Negative); Protein,Urine Negative (Negative); Specific Gravity,Urine 1.009 (1.001-1.035); Urobilinogen,Urine <2.0 mg/dL (<2.0)
[2018-11-15] MEDS: FUROSEMIDE 20 MG TAB PO SCH (08:31)
[2018-11-15] MEDS: MEMANTINE 10 MG TAB PO SCH (08:31)
[2018-11-15] MEDS: AMIODARONE 200 MG TAB PO SCH (08:31)
[2018-11-15] MEDS: ACETAMINOPHEN TAB 500 MG TAB PO PRN (08:31)
[2018-11-15] MEDS: MULTIVITAMINS, THERA 1 EACH TAB PO SCH (08:31)
[2018-11-15] MEDS: POTASSIUM CHLORIDE ER 10 MEQ TAB.ER.PRT PO SCH (08:31)
[2018-11-15] MEDS: DOCUSATE 100 MG CAP PO SCH (08:32)
[2018-11-15] MEDS: LIDOCAINE 5% PATCH TOPICAL SCH (08:32)
[2018-11-15] MEDS: CARVEDILOL 3.125 MG TAB PO SCH (08:32)
[2018-11-15] MEDS: LOSARTAN 25 MG TAB PO SCH (08:32)
--- NOTE | 2018-11-15 08:40 | P.DS ---
Providers Date of admission: 11/09/18 18:26 Expected date of discharge: 11/15/18 Attending physician: Fred Arellano Consults: 11/09/18 18:25 Consult Physician Routine Consulting Provider: Kendy Figueredo Consult Reason/Comments: medMgmnt Do you want consulting provider notified?: Yes 11/10/18 00:06 Consult Physician Routine Consulting Provider: Rojelio Ward Consult Reason/Comments: h/o afib Do you want consulting provider notified?: Yes Primary care physician: Fred Gant - Discharge Diagnosis(es) (1) Fall Current Visit: Yes Status: Acute (2) Hip fracture, left Current Visit: Yes Status: Acute Priority: Medium (3) Left shoulder pain Current Visit: Yes Status: Acute Hospital Course: This is a 78-year-old female who sustained a left hip fracture after a fall at home. The patient presented to the emergency room for evaluation and x-rays revealed a subcapital fracture of the left femur. After discussion and co nsideration the patient and her family elect to proceed with left hip hemiarthroplasty. The patient is seen preoperatively by Dr. Arellano and medically cleared for surgery by internal medicine and cardiology. Patient is admitted to [facility] on 11/09/2018 and left hip hemiarthroplasty is performed on 11/11/2018. The procedures performed without complication or sequelae. The patient is doing well postoperatively. Labs and vital signs are stable on day of discharge. On day of discharge patient's hip incision is healing well. There is minimal erythema. There is no drainage noted at this time. There is minimal soft tissue swelling to the hip and thigh. Patient has full foot and ankle motion without difficulty or pain. Calf is soft and nontender to palpation. Neurovascular status to the left lower extremity is intact. Patient is discharged to rehab in good condition. Please see med rec for accurate list of home medications. Patient Condition at Discharge: Fair Plan - Discharge Summary Discharge Rx Participant: Yes New Discharge Prescriptions: New Acetaminophen Tab [Tylenol Tab] 1 - 2 tab PO Q8H PRN #90 tablet PRN Reason: Pain No Action Acetaminophen Tab [Tylenol] 1,000 mg PO Q6H PRN PRN Reason: Pain Pravastatin Sodium [Pravachol] 20 mg PO HS Memantine [Namenda] 10 mg PO BID Losartan [Cozaar] 25 mg PO DAILY Carvedilol [Coreg] 3.125 mg PO BID Amiodarone [Cordarone] 200 mg PO DAILY Prune-Lax 2 tab PO DAILY Lidocaine 5% Patch [Lidoderm 5% Patch] 1 patch TOPICAL DAILY #7 patch Furosemide [Lasix] 20 mg PO DAILY Potassium Chloride ER [K-Dur 10] 10 meq PO DAILY Warfarin [Coumadin] 0.5 mg PO SUMOWEFRSA Warfarin [Coumadin] 1 mg PO TUTH Discharge Medication List Acetaminophen Tab [Tylenol] 1,000 mg PO Q6H PRN 10/07/13 [History] Amiodarone [Cordarone] 200 mg PO DAILY 09/06/18 [History] Carvedilol [Coreg] 3.125 mg PO BID 09/06/18 [History] Losartan [Cozaar] 25 mg PO DAILY 09/06/18 [History] Memantine [Namenda] 10 mg PO BID 09/06/18 [History] Pravastatin Sodium [Pravachol] 20 mg PO HS 09/06/18 [History] Prune-Lax 2 tab PO DAILY 09/06/18 [History] Lidocaine 5% Patch [Lidoderm 5% Patch] 1 patch TOPICAL DAILY #7 patch 09/09/18 [Rx] Furosemide [Lasix] 20 mg PO DAILY 10/08/18 [History] Potassium Chloride ER [K-Dur 10] 10 meq PO DAILY 10/08/18 [History] Warfarin [Coumadin] 0.5 mg PO SUMOWEFRSA 11/09/18 [History] Warfarin [Coumadin] 1 mg PO TUTH 11/09/18 [History] Acetaminophen Tab [Tylenol Tab] 1 - 2 tab PO Q8H PRN #90 tablet 11/15/18 [Rx] Follow up Appointment(s)/Referral(s): None,Stated [REFERRING] - 1-2 days Fred Arellano DO [Doctor of Osteopathic Medicine] - 2 Weeks Activity/Diet/Wound Care/Special Instructions: Weightbearing as tolerated with walker. Daily dressing changes. May shower if no drainage from the incision. Continue use of abductor pillow x6 weeks. Anticoagulation with Coumadin, dosing per internal medicine. Please follow-up with [facility] in 2 weeks and call with any questions or concerns, . Discharge Disposition: TRANSFER TO SNF/F
[2018-11-15 11:54] VITALS: BP 95/59
[2018-11-15] MEDS ORDERED: AMOXIC-POT CLAV 875-125MG 1 EACH TAB PO SCH (11:59)
--- NOTE | 2018-11-15 14:38 | P.PN ---
Subjective This is a pleasant 78 years old female with past medical history of hypertension, dementia, COPD, atrial fibrillation on warfarin, congestive heart failure with ejection fraction went up from 20% to 50% after placement of AICD, presents because of fall and left hip fracture she status post left total hip arthroplasty. Patient has been evaluated by the orthopedic primary team and plan for her to go to [facility] for inpatient rehab today. Patient today is fully awake, lying in bed, she looks cachectic. She is complaining of from pain at the surgical site but states is controlled, however she denies chest pain or dyspnea. No abdominal complaints. She is starting diet well with no nausea or vomiting. She is denying diarrhea. Patient has low-grade temperature yesterday afternoon, she has mild leukocytosis which is improving gradually today is 10.8 K. UA is repeated to date was negative. Chest x-ray showing possible small left pleural effusion with adjacent patient was started on Augmentin for possible pneumonia. She is on Coumadin for atrial fibrillation, patient and decide denies history of clot including no history of DVT or PE. Patient usually takes Coumadin 1 mg every Thursday, and Thursday, with 0.5 mg the rest 4 days of the week as per her at bedside. Currently her INR is 1.4, she got 3 mg of Coumadin today. We will give her another 4 mg of Coumadin today and then resume 1 mg daily with check an INR frequently when she goes to [facility]. Her blood pressure on the low normal side and she is 95/59 today, she feels generally weak. We will continue with amiodarone for her A. fib. Would hold 20 mg of by mouth Lasix and lower the dose of losartan from 25 down to 12.5 mg Review of systems -CONSTITUTIONAL: No fever, no malaise. Patient feels generally weak- HEENT: No recent visual problems or hearing problems. Denied any sore throat. CARDIOVASCULAR: No orthopnea, PND, no palpitations, no syncope. PULMONARY: No shortness of breath, no cough, no hemoptysis. GASTROINTESTINAL: No diarrhea, no nausea, no vomiting, no abdominal pain. Normoactive bowel sounds. NEUROLOGICAL: No headaches, no weakness, no numbness. HEMATOLOGICAL: Denies any bleeding or petechiae. GENITOURINARY: Denies any burning micturition, frequency, or urgency. MUSCULOSKELETAL/RHEUMATOLOGICAL: Denies any joint pain, swelling, or any muscle pain. ENDOCRINE: Denies any polyuria or polydipsia. Medication: Tylenol 6 1000 mg, amiodarone 200 mg, Augmentin 875-125 mg, Coreg 3.125 mg, Colace 100 mg, Shubert 5-325 mg, Dilaudid 0.25 mg, lidocaine patch 5%, losartan 12.5 mg, milk of magnesia 2400 mg, Namenda 10 mg, morphine sulfate 4 mg, Zofran 4 mg, Pravachol 20 mg, Senokot 2 tablets, warfarin 4 mg. Objective - Vital Signs Vital signs: Vital Signs Temp 98.5 F 11/15/18 07:22 Pulse 66 11/15/18 07:22 Resp 15 11/15/18 07:22 BP 95/59 11/15/18 11:53 Pulse Ox 98 11/15/18 07:22 Intake & Output 11/14/18 11/15/18 11/15/18 18:59 06:59 18:59 Intake Total 800 320 Output Total 400 Balance 400 320 Weight 38.555 kg Intake: Oral 800 320 Output: Urine 400 Uretheral (Oh) 200 Other: Voiding Method Indwelling Catheter Bedpan Bedside Commode Incontinent # Voids 1 - Labs CBC & Chem 7: 11/15/18 07:42 11/11/18 06:59 Labs: Abnormal Lab Results - Last 24 Hours (Table) 11/15/18 11/15/18 Range/Units 07:42 07:42 WBC 10.9 H (3.8-10.6) k/uL RBC 2.81 L (3.80-5.40) m/uL Hgb 8.6 L (11.4-16.0) gm/dL Hct 26.6 L (34.0-46.0) % RDW 16.8 H (11.5-15.5) % PT 14.5 H (9.0-12.0) sec INR 1.4 H (<1.2) Assessment and Plan Assessment: Recent fall Left hip fracture, status post left total hip arthroplasty Community-acquired pneumonia Paroxysmal atrial fibrillation on warfarin Dementia Essential hypertension History of congestive heart failure with ejection fraction 20% went up to 50% after placement of AICD. Plan: This is a pleasant 78 years old female who presents with fall, left hip fracture, status post arthroplasty. Today patient workup revealing she has pneumonia and she was started on Augmentin, patient has mild fever and leukocytosis which is improving. Patient blood pressure medication were adjusted for low normal blood pressure, this might help her with generalized weakness.Labs and medication were reviewed.. Continue same treatment. Continue with symptomatic treatment. Resume home medication. Monitor lytes and vitals. DVT and GI prophylaxis. Further recommendations of the clinical course of the patient DVT prophylaxis: On warfarin Prognosis is guarded
[2018-11-15] MEDS ORDERED: WARFARIN 1 MG TAB PO ONE (18:00)
[2018-11-15] MEDS ORDERED: WARFARIN 2 MG TAB PO ONE (18:00)
--- NOTE | 2018-11-16 14:38 | CDI ---
Documentation Clarification Form Date: 11-16-18 From: ONESIMO Nunez Phone: If you have question, contact Yulissa Lew at [phone] M-F 8:30 am to 6pm Admit Date: 11/09/2018 6:26:00 PM Patient Name: Francia Velarde Visit Number: [id number] Discharge Date: 11/15/2018 4:00:00 PM ATTENTION: The Clinical Documentation Specialists (CDI) and [facility] Coding Staff appreciate your assistance in clarifying documentation. Please respond to the clarification below the line at the bottom and electronically sign. The CDI & [facility] Coding staff will review the response and follow-up if needed. Please note: Queries are made part of the Legal Health Record. If you have any questions, please contact the author of this message via ITS. Dr. Kendy Figueredo MD CHF is documented in the progress note with an ejection fraction of 50%. Treatment: Patient is on a dose of 20 mg PO daily of Lasix. Please clarify In your professional opinion, can you please clarify the acuity and type of CHF if known? *Systolic Heart Failure: *Diastolic Heart Failure: *Systolic & Diastolic Heart Failure: *Unable to Determine *Other, please specify *Diastolic Heart Failure: MTDD
== END 2018-11-15 16:00 | DRG 469 ==
LOC: EC 16:16 → 4SSUR 18:26
PROVIDERS: ADMIT Orthopaedic Surgery; ATTEND Orthopaedic Surgery
PROC: 0SRS0JA Replacement of Left Hip Joint, Femoral Surface with Synthetic Substitute, Uncemented, Open Approach (ICD-10-PCS; principal; 2018-11-09)
DX: S72.012A Unspecified intracapsular fracture of left femur, initial encounter for closed fracture (principal); E43 Unspecified severe protein-calorie malnutrition; Z68.1 Body mass index [BMI] 19.9 or less, adult; I50.32 Chronic diastolic (congestive) heart failure; I13.0 Hypertensive heart and chronic kidney disease with heart failure and stage 1 through stage 4 chronic kidney disease, or unspecified chronic kidney disease; I42.9 Cardiomyopathy, unspecified; R64 Cachexia; N18.3 Chronic kidney disease, stage 3 (moderate); D63.1 Anemia in chronic kidney disease; E78.5 Hyperlipidemia, unspecified; I27.20 Pulmonary hypertension, unspecified; I48.2 Chronic atrial fibrillation; W19.XXXA Unspecified fall, initial encounter; J44.9 Chronic obstructive pulmonary disease, unspecified; F03.90 Unspecified dementia, unspecified severity, without behavioral disturbance, psychotic disturbance, mood disturbance, and anxiety; M25.512 Pain in left shoulder; Y92.009 Unspecified place in unspecified non-institutional (private) residence as the place of occurrence of the external cause; Z98.49 Cataract extraction status, unspecified eye; Z87.891 Personal history of nicotine dependence; Z79.01 Long term (current) use of anticoagulants; Z79.899 Other long term (current) drug therapy; Z88.8 Allergy status to other drugs, medicaments and biological substances; Z95.810 Presence of automatic (implantable) cardiac defibrillator
CPT/HCPCS: 36415; 71045; 73501; 73502; 74018; 80048; 80053; 81003; 82550; 83735; 84100; 84484; 85025; 85027; 85610; 85730; 86850; 86900; 86901; 87086; 88305; 88311; 93005; 96360; 99285